=== PATIENT | male | born 1940 | race Caucasian/White ===

== ENCOUNTER 2018-03-23 14:40 | Inpatient (IN) | payer OTHER ==
--- NOTE | 2018-03-23 14:55 | PDOC ---
History of Present Illness - General History Source: Patient Exam Limitations: No Limitations - History of Present Illness Initial Comments: 03/23/18 16:06 The patient is a 77 year old male with a significant PMH of diabetes who presents to the emergency department via EMS with inability to ambulate. The patient reports that he was last ambulatory 2 days prior to today but, his knees gave out and he has been unable to ambulate since then. The patient reports that he has had about 4 prior knee injuries where he has fallen on his knees within the past 5 years. The patient reports that he has been told by prior physicians that he would need knee replacement surgery. The patient reports that he has not followed up with a physician regarding this matter. The patient denies the use of any waking assistance. He denies any chest pain or SOB. He denies any fever, chills, nausea, vomiting, or diarrhea. The patient denies any prior tetanus vaccines. It is noted that the patient has been non compliant with diabetes medication for 2 years. The patient denies any other complaints. <Reji Cornelius - Last Filed: 03/23/18 17:33> <Juana Donaldson - Last Filed: 03/23/18 18:01> - General Chief Complaint: Edema Stated Complaint: UNABLE TO AMBULATE DUE TO B/L KNEE PROBLEM Time Seen by Provider: 03/23/18 14:42 Past History <Reji Cornelius - Last Filed: 03/23/18 17:33> - Suicide/Smoking/Psychosocial Hx Smoking History: Never smoked Information on smoking cessation initiated: No Hx Alcohol Use: No Drug/Substance Use Hx: No <Juana Donaldson - Last Filed: 03/23/18 18:01> - Past Medical History Allergies/Adverse Reactions: Allergies Allergy/AdvReac Type Severity Reaction Status Date / Time No Known Allergies Allergy Verified 03/23/18 14:50 Home Medications: Ambulatory Orders NK [No Known Home Medication] 03/23/18 Review of Systems - Review of Systems Comments:: 03/23/18 16:06 GENERAL/CONSTITUTIONAL: No fever or chills. No weakness. HEAD, EYES, EARS, NOSE AND THROAT: No change in vision. No ear pain or discharge. No sore throat. CARDIOVASCULAR: No chest pain or shortness of breath. RESPIRATORY: No cough, wheezing, or hemoptysis. GASTROINTESTINAL: No nausea, vomiting, diarrhea or constipation. GENITOURINARY: No dysuria, frequency, or change in urination. MUSCULOSKELETAL: (+) right and left knee injury. No neck or back pain. SKIN: No rash NEUROLOGIC: No headache, vertigo, loss of consciousness, or change in strength/ sensation. ENDOCRINE: No increased thirst. No abnormal weight change. HEMATOLOGIC/LYMPHATIC: No anemia, easy bleeding, or history of blood clots. ALLERGIC/IMMUNOLOGIC: No hives or skin allergy. <Reji Cornelius - Last Filed: 03/23/18 17:33> *Physical Exam - Vital Signs Last Vital Signs Temp Pulse Resp BP Pulse Ox 98.1 F 90 18 146/69 96 03/23/18 14:42 03/23/18 14:42 03/23/18 14:42 03/23/18 14:42 03/23/18 14:42 - Physical Exam Comments: 03/23/18 16:06 GENERAL: Awake, alert, and fully oriented, in no acute distress HEAD: No signs of trauma EYES: PERRLA, EOMI, sclera anicteric, conjunctiva clear ENT: Auricles normal inspection, hearing grossly normal, nares patent, oropharynx clear without exudates. Moist mucosa NECK: Normal ROM, supple, no lymphadenopathy, JVD, or masses LUNGS: (+) diminished at the base. Breath sounds equal, No wheezes, and no crackles HEART: Regular rate and rhythm, normal S1 and S2, no murmurs, rubs or gallops ABDOMEN: Soft, nontender, normoactive bowel sounds. No guarding, no rebound. No masses EXTREMITIES: (+) plus 2 pitting edema and abrasions to both knees. Mild tenderness consistent with rug fung. . Normal range of motion, No clubbing or cyanosis. No cords, erythema. NEUROLOGICAL: (+) gait deferred. Cranial nerves II through XII grossly intact. Normal speech, SKIN: Warm, Dry, normal turgor, no rashes or lesions noted. <Reji Cornelius - Last Filed: 03/23/18 17:33> - Vital Signs Last Vital Signs Temp Pulse Resp BP Pulse Ox 98.1 F 90 18 146/69 96 03/23/18 14:42 03/23/18 14:42 03/23/18 14:42 03/23/18 14:42 03/23/18 14:42 <Juana Donaldson - Last Filed: 03/23/18 18:01> Heart Score/ECG Review - ECG Intrepretation Comment:: 03/23/18 17:48 sinus at 89, nl axis, nl interval, no acute st/t wave findings, t wave flattening in the inferior leads, q waves inferior that are age indeterminate 03/23/18 17:49 <Juana Donaldson - Last Filed: 03/23/18 18:01> ED Treatment Course - LABORATORY CBC & Chemistry Diagram: 03/23/18 14:00 03/23/18 15:35 - Medications Given in the ED: ED Medications Discontinued Medications Generic Name Dose Route Start Last Admin Trade Name Krystianq PRN Reason Stop Dose Admin Acetaminophen 1,000 mg 03/23/18 15:04 03/23/18 15:35 Tylenol - PO 03/23/18 15:05 1,000 mg ONCE ONE Administration <Reji Cornelius - Last Filed: 03/23/18 17:33> - LABORATORY CBC & Chemistry Diagram: 03/23/18 14:00 03/23/18 15:35 <Juana Donaldson - Last Filed: 03/23/18 18:01> Medical Decision Making - Medical Decision Making 03/23/18 17:[address] Morales at 5:05pm <Reji Cornelius - Last Filed: 03/23/18 17:33> - Medical Decision Making 03/23/18 15:01 a/p: 77yo male brought in with an ambulance from [facility] for eval of b/l knee pain -hx of falls x 5 over the last few years -told he needs knee replacements in the past -knees gave out 2 days ago and he hasn't been able to ambulate since -will update tetanus -LE 2+pitting edema -noncompliant diabetic -disheveled, obese, LE edema -will obtain labs, doppler, xrays, ekg -will attempt to ambulate tylenol for pain 03/23/18 17:09 mildly elevated trop at 0.[address] Christensen who will see the patient in consult tomorrow recommended trending trop asa monitor 03/23/18 17:46 case discussed with Sil from [facility] who accepts the patient to service. Will place a consult to cards, ortho, pt will admit to tele ivf for elevated ck - mild rhabdo 03/23/18 17:58 pt updated and willing to stay for further eval <Juana Donaldson - Last Filed: 03/23/18 18:01> *DC/Admit/Observation/Transfer - Attestations Scribe Attestion: 03/23/18 16:07 Documentation prepared by Reji Cornelius, acting as medical sociologist for Juana Donaldson MD <Reji Cornelius - Last Filed: 03/23/18 17:33> - Discharge Dispostion Admit: Yes - Attestations Physician Attestion: 03/23/18 17:10 I, Dr. Juana Donaldson, DO, attest that this document has been prepared under my direction and personally reviewed by me in its entirety. I further attest, that it accurately reflects all work, treatment, procedures and medical decision -making performed by me. <Juana Donaldson - Last Filed: 03/23/18 18:01> Diagnosis at time of Disposition: Inability to ambulate due to knee, Elevated troponin, Obesity, Noncompliance with medication regimen, Rhabdomyolysis - Discharge Dispostion Condition at time of disposition: Guarded
[2018-03-23] MEDS ORDERED: ACETAMINOPHEN 500 MG TABLET (FP) PO ONE (15:04)
[2018-03-23] MEDS ORDERED: DIPHTH,PERTUSS(ACELL),TET 0.5 ML DISP.SYRIN IM ONE (15:04)
[2018-03-23] MEDS ORDERED: ACETAMINOPHEN 500 MG TABLET (FP) ONE (15:34)
[2018-03-23 16:23] LABS: ALBUMIN 3.5 g/dl (3.5-5.0); ALK PHOS 66 U/L (32-92); ANION GAP 11 (8-16); BILIRUBIN,TOTAL 1.3 mg/dl (0.2-1.0); BLOOD UREA NITROGEN 16 mg/dl (7-18); CALCIUM 8.6 mg/dl (8.4-10.2); CHLORIDE 98 mmol/L (98-107); CO2 25 mmol/L (22-28); CREATININE 0.9 mg/dl (0.6-1.3); GLUCOSE,RANDOM 129 mg/dl (74-106); MAGNESIUM 1.8 mg/dL (1.8-2.4); POTASSIUM 4.3 mmol/L (3.5-5.1); SGPT/ALT 153 U/L (10-40); SODIUM 134 mmol/L (136-145); TOT PROT 6.5 g/dl (6.4-8.3)
[2018-03-23 16:39] LABS: BASO % 0.2 % (0-2.0); HEMATOCRIT 43.1 % (35.4-49); HEMOGLOBIN 14.5 GM/dl (11.7-16.9); LYMPH % 10.1 % (8-40); MCH 28.2 pg (25.7-33.7); MCHC 33.6 g/dl (32.0-35.9); MEAN PLT VOLUME 7.8 fl (7.5-11.1); MONO % 9.1 % (3.8-10.2); NEUT % 80.6 % (42.8-82.8); PLATELET COUNT 209 K/MM3 (134-434); RBC 5.14 M/mm3 (4.00-5.60); WHITE BLOOD COUNT 9.9 K/mm3 (4.0-10.8)
[2018-03-23] MEDS ORDERED: ASPIRIN 81 MG CHEWABLE TABLETS PO ONE (16:58)
[2018-03-23 17:07] LABS: SGOT/AST 570 U/L (10-42)
[2018-03-23] MEDS ORDERED: ASPIRIN 81 MG CHEWABLE TABLETS ONE (17:08)
[2018-03-23] MEDS ORDERED: SODIUM CHLORIDE 0.9% 1000 ML INFUS.BAG IV ONE (17:45)
[2018-03-23 19:13] LABS: URINE APPEARANCE Clear; URINE BILIRUBIN 1+ (NEGATIVE); URINE GLUCOSE (UA) Negative (NEGATIVE); URINE KETONE 2+ (NEGATIVE); URINE LEUK ESTERASE Negative (NEGATIVE); URINE NITRITE Negative (NEGATIVE); URINE UROBILINOGEN 0.2 (0.2-1.0)
[2018-03-23 19:14] LABS: URINE BLOOD 3+ (NEGATIVE); URINE COLOR YELLOW; URINE PROTEIN 2+ (NEGATIVE)
--- NOTE | 2018-03-23 20:11 | HP ---
CHIEF COMPLAINT: Unable to ambulate, B/L Knee Pain PCP: HISTORY OF PRESENT ILLNESS: 77 y/o man PMH of DM. Who presents to the ED via ambulance from home with B/L knee pain, unable to ambulate. Patient reports his knees gave out on him 2 days ago. Patient reports increased LE edema, SOB increased when ambulating. Patient reports not taking his DM meds. patient reports an increase in weight secondary to poor eating habits. Patient denies fever, chills, cough, CP, palpitations, AP , N/V/D, constipation, dysuria. ER course was notable for: (1) [place] [address], CKMB 69.3, Trop < 0.11 (2) Glucose 209 (3) Recent Travel: None PAST MEDICAL HISTORY: see HPI PAST SURGICAL HISTORY: Social History: Smoking: Never Alcohol: None Drugs: None Lives alone Family History: non-contributory Allergies No Known Allergies Allergy (Verified 03/23/18 14:50) HOME MEDICATIONS: Home Medications Medication Instructions Recorded NK [No Known Home Medication] 03/23/18 REVIEW OF SYSTEMS CONSTITUTIONAL: Absent: fever, chills, diaphoresis, generalized weakness, malaise, loss of appetite, weight change HEENT: Absent: rhinorrhea, nasal congestion, throat pain, throat swelling, difficulty swallowing, mouth swelling, ear pain, eye pain, visual changes CARDIOVASCULAR: peripheral edema Absent: chest pain, syncope, palpitations, irregular heart rate, lightheadedness RESPIRATORY: shortness of breath Absent: cough, dyspnea with exertion, orthopnea, wheezing, stridor, hemoptysis GASTROINTESTINAL: Absent: abdominal pain, abdominal distension, nausea, vomiting, diarrhea, constipation, melena, hematochezia GENITOURINARY: Absent: dysuria, frequency, urgency, hesitancy, hematuria, flank pain, genital pain MUSCULOSKELETAL: arthralgia, joint swelling Absent: myalgia, back pain, neck pain SKIN: Absent: rash, itching, pallor HEMATOLOGIC/IMMUNOLOGIC: Absent: easy bleeding, easy bruising, lymphadenopathy, frequent infections ENDOCRINE: Absent: unexplained weight gain, unexplained weight loss, heat intolerance, cold intolerance NEUROLOGIC: unsteady gait Absent: headache, focal weakness or paresthesias, dizziness, seizure, mental status changes, bladder or bowel incontinence PSYCHIATRIC: Absent: anxiety, depression, suicidal or homicidal ideation, hallucinations. PHYSICAL EXAMINATION Vital Signs - 24 hr 03/23/18 03/23/18 14:42 18:30 Temperature 98.1 F Pulse Rate 90 Pulse Rate [ 86 Apical] Respiratory 18 20 Rate Blood Pressure 146/69 Blood Pressure 142/72 [Arm] O2 Sat by Pulse 96 95 Oximetry (%) GENERAL: Severe Obesity, Awake, alert, and fully oriented, in no acute distress. HEAD: Normal with no signs of trauma. EYES: Pupils equal, round and reactive to light, extraocular movements intact, sclera anicteric, conjunctiva clear. No lid lag. EARS, NOSE, THROAT: Ears normal, nares patent, oropharynx clear without exudates. Dry mucous membranes. NECK: Normal range of motion, supple without lymphadenopathy, JVD, or masses. LUNGS: Breath sounds diminished bilaterally. No wheezes, and no crackles. No accessory muscle use. HEART: Regular rate and rhythm, normal S1 and S2 without murmur, rub or gallop. ABDOMEN: +erythema, non-raised excoriation, malodorous, under left pannis, Obese Soft, nontender, not distended, normoactive bowel sounds, no guarding, no rebound, no masses. No hepatomegaly or splenomegaly. MUSCULOSKELETAL: Normal range of motion at all joints. No bony deformities or tenderness. No CVA tenderness. UPPER EXTREMITIES: 2+ pulses, warm, well-perfused. No cyanosis. No clubbing. No peripheral edema. LOWER EXTREMITIES: 2+ pulses, warm, well-perfused. No calf tenderness. +3 B/L pitting peripheral edema. NEUROLOGICAL: Cranial nerves II-XII intact. Normal speech. Gait not observed. PSYCHIATRIC: Cooperative. Good eye contact. Appropriate mood and affect. SKIN: Warm, dry, normal turgor, no rashes. rerythema, non-raised excoriation lesions left fold abdomen noted, normal capillary refill. Laboratory Results - last 24 hr 03/23/18 03/23/18 03/23/18 14:00 15:35 15:37 WBC 9.9 RBC 5.14 Hgb 14.5 Hct 43.1 MCV 84.0 MCH 28.2 MCHC 33.6 RDW 14.0 Plt Count 209 MPV 7.8 Neutrophils % 80.6 Lymphocytes % 10.1 Monocytes % 9.1 Eosinophils % 0.0 Basophils % 0.2 Sodium 134 L Potassium 4.3 Chloride 98 Carbon Dioxide 25 Anion Gap 11 BUN 16 Creatinine 0.9 Creat Clearance w eGFR > 60 Random Glucose 129 H Calcium 8.6 Magnesium 1.8 Total Bilirubin 1.3 H AST 570 H ALT 153 H Alkaline Phosphatase 66 Creatine Kinase 66854 H Creatine Kinase Index 0.3 CK-MB (CK-2) 69.3 H Troponin I B-Natriuretic Peptide Total Protein 6.5 Albumin 3.5 Urine Color Urine Appearance Urine pH Ur Specific Lebeau Urine Protein Urine Glucose (UA) Urine Ketones Urine Blood Urine Nitrite Urine Bilirubin Urine Urobilinogen Ur Leukocyte Esterase 03/23/18 03/23/18 03/23/18 16:00 16:00 19:00 WBC RBC Hgb Hct MCV MCH MCHC RDW Plt Count MPV Neutrophils % Lymphocytes % Monocytes % Eosinophils % Basophils % Sodium Potassium Chloride Carbon Dioxide Anion Gap BUN Creatinine Creat Clearance w eGFR Random Glucose Calcium Magnesium Total Bilirubin AST ALT Alkaline Phosphatase Creatine Kinase Creatine Kinase Index CK-MB (CK-2) Troponin I 0.11 H B-Natriuretic Peptide 907.39 H Total Protein Albumin Urine Color Yellow Urine Appearance Clear Urine pH 5.0 Ur Specific Lebeau >= 1.030 H Urine Protein 2+ H Urine Glucose (UA) Negative Urine Ketones 2+ H Urine Blood 3+ H Urine Nitrite Negative Urine Bilirubin 1+ H Urine Urobilinogen 0.2 Ur Leukocyte Esterase Negative ASSESSMENT/PLAN: 77 y/o man with PMH DM. Placed in Tele Observation Rhabdomyolosis, Uncontrolled DM, Unable to ambulate Problems 1. Rhabdomyolysis 2. Unble to ambulate 3. Uncontrolled DM 4. Fungal Infection- Abdomen Plan FEN - NS@42ml/hr - replete lytes prn - NPO Code Status: Full Code Dispo: Requires Observation Problem List - Problem (1) Rhabdomyolysis Assessment/Plan: - Likely secondary to inability to ambulate, frequent falls - continue cardiac monitoring - Fluid bolus given in ED - Continue gentle IVF - Serial cardiac enzymes - Appreciate cardiology consult - EKG reviewed - repeat EKG in am Code(s): M62.82 - RHABDOMYOLYSIS (2) Elevated troponin Assessment/Plan: - see above Code(s): R74.8 - ABNORMAL LEVELS OF OTHER SERUM ENZYMES (3) Inability to ambulate due to knee Assessment/Plan: - Likely secondary to severe OA - PT - Consider Ortho consult - Pain Mgmt Code(s): R26.2 - DIFFICULTY IN WALKING, NOT ELSEWHERE CLASSIFIED (4) Fungal infection of skin of abdomen Assessment/Plan: - Likely secondary to poor hygiene - Nystatin daily Code(s): B36.9 - SUPERFICIAL MYCOSIS, UNSPECIFIED (5) Severe obesity (BMI >= 40) Assessment/Plan: - Carb Control Diet Code(s): E66.01 - MORBID (SEVERE) OBESITY DUE TO EXCESS CALORIES (6) DVT prophylaxis Assessment/Plan: - OOB - SCDs - Consider AC if LOS> 48 hrs Code(s): [id number] - Visit type - Emergency Visit Emergency Visit: Yes ED Registration Date: 03/23/18 Care time: The patient presented to the Emergency Department on the above date and was hospitalized for further evaluation of their emergent condition. - New Patient This patient is new to me today: Yes Date on this admission: 03/23/18 - Critical Care Critical Care patient: No Hospitalist Screening - Colonoscopy Questionnaire Colonoscopy Questionnaire: Colonoscopy Questionnaire - Patient: 50 - 75 years old and never had a screening colonoscopy: No History of colon or rectal polyps, or CA: No History of IBD, Crohn's disease or UC: No History of abdominal radiation therapy as a child: No - Relative: 1 with colon or rectal CA, or polyps at age 60 or younger: No Colon or rectal CA diagnosed at age 45 or younger: No Multiple relatives with colon or rectal CA: No - Outcome: Screening Result: Negative Screen
[2018-03-23 20:45] LABS: URINE BACTERIA FEW /hpf (NEGATIVE)
[2018-03-23] MEDS: ACETAMINOPHEN 325 MG TABLET (FP) PO SCH (21:22)
[2018-03-23] MEDS: HEPARIN NA (PORCINE) 5,000 UNITS/ML 1ML VIAL SQ SCH (21:42)
[2018-03-23] MEDS: INSULIN SLIDING SCALE (NOVOLOG) 1 VIAL SQ SCH (21:42)
[2018-03-24] MEDS ORDERED: SODIUM CHLORIDE 500 ML IV STA (00:14)
[2018-03-24] MEDS ORDERED: SODIUM CHLORIDE 1,000 ML IV SCH ×2 (00:15→11:20)
[2018-03-24] MEDS: ACETAMINOPHEN 325 MG TABLET (FP) PO SCH ×4 (00:40→17:58)
[2018-03-24] MEDS: NYSTATIN POWDER 100,000 UNITS/GM - 15 GM TOPICAL POWDER TP SCH ×2 (01:25→10:12)
[2018-03-24] MEDS: HEPARIN NA (PORCINE) 5,000 UNITS/ML 1ML VIAL SQ SCH (06:10)
[2018-03-24] MEDS: INSULIN SLIDING SCALE (NOVOLOG) 1 VIAL SQ SCH ×4 (06:54→21:13)
[2018-03-24 08:30] LABS: BASO % 0.1 % (0-2.0); EOS % 0.2 % (0-4.5); HEMATOCRIT 38.4 % (35.4-49); HEMOGLOBIN 12.9 GM/dl (11.7-16.9); LYMPH % 11.9 % (8-40); MCH 28.6 pg (25.7-33.7); MCHC 33.5 g/dl (32.0-35.9); MEAN CELL VOLUME 85.2 fl (80-96); MEAN PLT VOLUME 7.5 fl (7.5-11.1); MONO % 10.4 % (3.8-10.2); NEUT % 77.4 % (42.8-82.8); PLATELET COUNT 188 K/MM3 (134-434); RBC 4.51 M/mm3 (4.00-5.60); WHITE BLOOD COUNT 7.9 K/mm3 (4.0-10.8)
[2018-03-24] MEDS ORDERED: PT OWN MED DRAWER 7, Y5N ONE (09:09)
[2018-03-24 09:25] LABS: CHLORIDE 104 mmol/L (98-107); POTASSIUM 3.5 mmol/L (3.5-5.1); SODIUM 140 mmol/L (136-145)
--- NOTE | 2018-03-24 10:22 | EKG ---
Test Reason : Blood Pressure : / mmHG Vent. Rate : 089 BPM Atrial Rate : 089 BPM P-R Int : 172 ms QRS Dur : 092 ms QT Int : 388 ms P-R-T Axes : 056 005 048 degrees QTc Int : 472 ms NORMAL SINUS RHYTHM CANNOT RULE OUT INFERIOR INFARCT , AGE UNDETERMINED ABNORMAL ECG NO PREVIOUS ECGS AVAILABLE Confirmed by MD GLORY, JILLIAN ([id number]) on 03/24/2018 10:22:05 AM Referred By: ALEKSANDAR Confirmed By:JILLIAN HOLDER MD
[2018-03-24 10:56] LABS: ANION GAP 8 (8-16); BLOOD UREA NITROGEN 13 mg/dL (7-18); CALCIUM 7.8 mg/dL (8.5-10.1); CO2 28 mmol/L (21-32); CREATININE 0.7 mg/dL (0.7-1.3); GLUCOSE,RANDOM 112 mg/dL (74-106); TOT PROT 5.9 g/dl (6.4-8.2)
[2018-03-24 10:57] LABS: ALK PHOS 69 U/L (45-117); BILIRUBIN,TOTAL 0.5 mg/dL (0.2-1.0); SGOT/AST 595 U/L (15-37); SGPT/ALT 181 U/L (12-78)
--- NOTE | 2018-03-24 11:00 | CON.CARD ---
Cardiology Consult (text) - Consultation Consultation Note: cc: elevated trop 77 yo with PMH of diabetes (per report) non compliant with diabetes medication for 2 years p/w LE edema/weakness/fall and found to have rhabdo. Hospital course complicated by new diagnosis of htn, paroxysmal afib and elevated troponin. S/p fall a few days ago, has been having difficulty ambulating since then. Had a recurrent fall where he was unable to get up for prolonged period. The patient reports that he has had about 4 prior knee injuries where he has fallen on his knees within the past 5 years. Denies the use of any walking assistance. ER course notable for elevated CK/rhabdo --> IVF. And elevated troponin --> ASA. also noted to be htn, has not yet received anti-htn. + sob, le edema chronic. + joint pain, unstable gait . + diarrhea today. He denies any chest pain, orthopnea, palps, dizziness, bleeding, transient neurologic symptoms. He denies any fever, chills, sweats, nausea, vomiting, cough, congestion, h/a. pmhx/pshx: per hpi social hx: Never smoked family hx: no cardiac disease ros: per hpi Ambulatory Orders NK [No Known Home Medication] 03/23/18 Current Medications Acetaminophen (Tylenol -) 650 mg PO Q6HPO [facility] Last Admin: 03/24/18 06:10 Dose: 650 mg Heparin Sodium (Porcine) (Heparin -) 5,000 unit SQ TID [facility] Last Admin: 03/24/18 06:10 Dose: 5,000 unit Sodium Chloride (Normal Saline -) 1,000 mls @ 42 mls/hr IV ASDIR [facility] Last Admin: 03/24/18 01:05 Dose: 42 mls/hr Insulin Aspart (Novolog Vial Sliding Scale -) 1 vial SQ ACHS [facility] PRN Reason: Protocol Last Admin: 03/24/18 06:54 Dose: Not Given Nystatin (Nystop Powder -) 1 applic TP DAILY [facility] Last Admin: 03/24/18 10:12 Dose: 1 applic Vital Signs - 24 hr 03/23/18 03/23/18 03/23/18 14:42 18:30 19:57 Temperature 98.1 F 98.0 F Pulse Rate 90 82 Pulse Rate [ 86 Apical] Respiratory 18 20 20 Rate Blood Pressure 146/69 144/68 Blood Pressure 142/72 [Arm] O2 Sat by Pulse 96 95 96 Oximetry (%) 03/23/18 03/23/18 03/24/18 21:00 21:59 01:21 Temperature 97.4 F L Pulse Rate 75 Pulse Rate [ Apical] Respiratory 20 18 18 Rate Blood Pressure 131/57 Blood Pressure [Arm] O2 Sat by Pulse 96 95 95 Oximetry (%) 03/24/18 03/24/18 03/24/18 01:45 06:00 06:08 Temperature 98.4 F 98.4 F 98.4 F Pulse Rate 86 89 89 Pulse Rate [ Apical] Respiratory 18 20 20 Rate Blood Pressure 158/72 181/80 181/80 Blood Pressure [Arm] O2 Sat by Pulse 95 95 Oximetry (%) 03/24/18 03/24/18 06:09 09:00 Temperature Pulse Rate Pulse Rate [ Apical] Respiratory 20 Rate Blood Pressure Blood Pressure [Arm] O2 Sat by Pulse 95 95 Oximetry (%) Intake & Output 03/22/18 03/23/18 03/24/18 03/25/18 07:59 07:59 07:59 07:59 Intake Total 2145 450 Output Total 1050 Balance 1095 450 Weight 297 lb nad, calm jvd tds, neck supple bibasilar rales, nl effort rrr nl s1, s2. no mrg. pmi nd ext with trace edema. no c/c + bs soft nt nd. +dp/pt aaox3 no jaundice, diaphoresis. CBC, BMP 03/24/18 07:25 03/24/18 07:25 Laboratory Tests 03/23/18 03/23/18 03/23/18 15:35 15:37 16:00 Sodium 134 L Hemoglobin A1c % Total Bilirubin 1.3 H AST 570 H ALT 153 H Alkaline Phosphatase 66 Creatine Kinase 26234 H Creatine Kinase Index 0.3 CK-MB (CK-2) 69.3 H Troponin I 0.11 H B-Natriuretic Peptide Albumin 03/23/18 03/23/18 03/23/18 16:00 21:41 22:00 Sodium Hemoglobin A1c % 7.5 H Total Bilirubin AST ALT Alkaline Phosphatase Creatine Kinase Creatine Kinase Index CK-MB (CK-2) Troponin I 0.10 H B-Natriuretic Peptide 907.39 H Albumin 03/23/18 03/24/18 03/24/18 22:00 03:15 07:25 Sodium Hemoglobin A1c % Total Bilirubin 0.5 AST 595 H ALT 181 H Alkaline Phosphatase 69 Creatine Kinase 85429 H 55273 H Creatine Kinase Index 0.2 0.1 CK-MB (CK-2) 58.8 H 36.239 H Troponin I 0.18 H B-Natriuretic Peptide Albumin 3.0 L ekg: nsr, early r wave progression. no acute ischemic changes. tele: sr with recurrent episodes of aflutter fib 5-10 min at a time. 77 yo with PMH of diabetes (per report) non compliant with diabetes medication for 2 years p/w LE edema/weakness/fall and found to have rhabdo. Hospital course complicated by new diagnosis of htn, paroxysmal afib and abnormal troponin. abnormal troponin - Intermediate troponin elevation (up to 0.18 in the setting of CK > 20,000, overall flat trend (still trending up in setting of ongoing uptrend in ck to 29, 000). Likely troponin leak 2/2 rhabdo (+/- demand from psvt). ekg without ischemic changes. No concern for ACS at the time. - can consider need for outpatient ischemic evaluation once acute issues resolve. - echo pending. sob - per pmd, concern for sob on IVF. Will get pa/lat cxr to assess for worsened pulm edema. If no worsened pulm edema, ok to con't IVF with renal guidance and close monitoring of volume status. daily weights, I/O's, bmp. - echo pending. new diagnosis of paroxysmal aflutter/fib - 5-10 min stretches of aflutter/fib. - new diagnosis, will initiate rate control with coreg as mentione below. Intiate AC with myranda. - echo pending. - consider petra eval as outpatient. htn - not previously on anti-htn regimen. initiating coreg (also for rate control) . uptitrate as needed. s/p mechanical fall/LE weakness/rhabdo - ongoing mgm't per pmd, renal.
[2018-03-24] MEDS ORDERED: POTASSIUM CHLORIDE TABS 10 MEQ TABLET.ER (FP) PO ONE (11:20)
[2018-03-24] MEDS ORDERED: SODIUM CHLORIDE 0.45% 1,000 ML IV SCH (11:30)
--- NOTE | 2018-03-24 11:33 | PN ---
Physical Exam: SUBJECTIVE: Patient seen and examined, sitting in bedside chair, reports feeling short of breath upon ambulating, run of aflutter noted on cardiac telemetry OBJECTIVE: Patient is 77 y/o male with a past medical history of hypertension and bph, patient self discontinued his mediations 2 years ago. patient was admitted from the emergency department for emergent condition. Vital Signs Period Temp Pulse Resp BP Sys/[place] Pulse Ox Last 24 Hr 97.4 F-98.4 F 75-90 18-20 131-181/57-80 95-96 GENERAL: obese, awake, alert, and fully oriented, in no acute distress. HEAD: Normal with no signs of trauma. EYES: PERRL, extraocular movements intact, sclera anicteric, conjunctiva clear. No ptosis. ENT: Ears normal, nares patent, oropharynx clear without exudates, moist mucous membranes. NECK: Trachea midline, full range of motion, supple. LUNGS: Breath sounds equal, clear to auscultation bilaterally, diminished to bases no wheezes, no crackles, no accessory muscle use. HEART: Regular rate and rhythm, S1, S2, 2/6 systolic murmur, rub or gallop. ABDOMEN: Soft, nontender, nondistended, normoactive bowel sounds, no guarding, no rebound, no hepatosplenomegaly, no masses. EXTREMITIES: 2+ pulses, warm, well-perfused, +2 LE edema. NEUROLOGICAL: Cranial nerves II through XII grossly intact. Normal speech, gait not observed. PSYCH: Normal mood, normal affect. SKIN: tinea noted to groin, Warm, dry, normal turgor, no rashes or lesions noted Laboratory Results - last 24 hr 03/23/18 03/23/18 03/23/18 14:00 15:35 15:37 WBC 9.9 RBC 5.14 Hgb 14.5 Hct 43.1 MCV 84.0 MCH 28.2 MCHC 33.6 RDW 14.0 Plt Count 209 MPV 7.8 Neutrophils % 80.6 Lymphocytes % 10.1 Monocytes % 9.1 Eosinophils % 0.0 Basophils % 0.2 Sodium 134 L Potassium 4.3 Chloride 98 Carbon Dioxide 25 Anion Gap 11 BUN 16 Creatinine 0.9 Creat Clearance w eGFR > 60 POC Glucometer Random Glucose 129 H Hemoglobin A1c % Calcium 8.6 Phosphorus Magnesium 1.8 Total Bilirubin 1.3 H AST 570 H ALT 153 H Alkaline Phosphatase 66 Creatine Kinase 96898 H Creatine Kinase Index 0.3 CK-MB (CK-2) 69.3 H Troponin I B-Natriuretic Peptide Total Protein 6.5 Albumin 3.5 Urine Color Urine Appearance Urine pH Ur Specific Quinter Urine Protein Urine Glucose (UA) Urine Ketones Urine Blood Urine Nitrite Urine Bilirubin Urine Urobilinogen Ur Leukocyte Esterase Urine RBC Urine WBC Urine Bacteria 03/23/18 03/23/18 03/23/18 16:00 16:00 19:00 WBC RBC Hgb Hct MCV MCH MCHC RDW Plt Count MPV Neutrophils % Lymphocytes % Monocytes % Eosinophils % Basophils % Sodium Potassium Chloride Carbon Dioxide Anion Gap BUN Creatinine Creat Clearance w eGFR POC Glucometer Random Glucose Hemoglobin A1c % Calcium Phosphorus Magnesium Total Bilirubin AST ALT Alkaline Phosphatase Creatine Kinase Creatine Kinase Index CK-MB (CK-2) Troponin I 0.11 H B-Natriuretic Peptide 907.39 H Total Protein Albumin Urine Color Yellow Urine Appearance Clear Urine pH 5.0 Ur Specific [place] >= 1.030 H Urine Protein 2+ H Urine Glucose (UA) Negative Urine Ketones 2+ H Urine Blood 3+ H Urine Nitrite Negative Urine Bilirubin 1+ H Urine Urobilinogen 0.2 Ur Leukocyte Esterase Negative Urine RBC 2-5 Urine WBC 10-20 Urine Bacteria Few 03/23/18 03/23/18 03/23/18 21:33 21:41 22:00 WBC RBC Hgb Hct MCV MCH MCHC RDW Plt Count MPV Neutrophils % Lymphocytes % Monocytes % Eosinophils % Basophils % Sodium Potassium Chloride Carbon Dioxide Anion Gap BUN Creatinine Creat Clearance w eGFR POC Glucometer 123 Random Glucose Hemoglobin A1c % 7.5 H Calcium Phosphorus Magnesium Total Bilirubin AST ALT Alkaline Phosphatase Creatine Kinase Creatine Kinase Index CK-MB (CK-2) Troponin I 0.10 H B-Natriuretic Peptide Total Protein Albumin Urine Color Urine Appearance Urine pH Ur Specific Quinter Urine Protein Urine Glucose (UA) Urine Ketones Urine Blood Urine Nitrite Urine Bilirubin Urine Urobilinogen Ur Leukocyte Esterase Urine RBC Urine WBC Urine Bacteria 03/23/18 03/24/18 03/24/18 22:00 03:15 06:40 WBC RBC Hgb Hct MCV MCH MCHC RDW Plt Count MPV Neutrophils % Lymphocytes % Monocytes % Eosinophils % Basophils % Sodium Potassium Chloride Carbon Dioxide Anion Gap BUN Creatinine Creat Clearance w eGFR POC Glucometer 128 Random Glucose Hemoglobin A1c % Calcium Phosphorus Magnesium Total Bilirubin AST ALT Alkaline Phosphatase Creatine Kinase 71906 H 40089 H Creatine Kinase Index 0.2 0.1 CK-MB (CK-2) 58.8 H 36.239 H Troponin I 0.18 H B-Natriuretic Peptide Total Protein Albumin Urine Color Urine Appearance Urine pH Ur Specific [place]inter Urine Protein Urine Glucose (UA) Urine Ketones Urine Blood Urine Nitrite Urine Bilirubin Urine Urobilinogen Ur Leukocyte Esterase Urine RBC Urine WBC Urine Bacteria 03/24/18 03/24/18 07:25 07:25 WBC 7.9 RBC 4.51 Hgb 12.9 D Hct 38.4 MCV 85.2 MCH 28.6 MCHC 33.5 RDW 14.0 Plt Count 188 MPV 7.5 Neutrophils % 77.4 Lymphocytes % 11.9 Monocytes % 10.4 H Eosinophils % 0.2 D Basophils % 0.1 Sodium 140 Potassium 3.5 Chloride 104 Carbon Dioxide 28 Anion Gap 8 BUN 13 Creatinine 0.7 Creat Clearance w eGFR > 60 POC Glucometer Random Glucose 112 H Hemoglobin A1c % Calcium 7.8 L Phosphorus 3.0 Magnesium 2.0 Total Bilirubin 0.5 AST 595 H ALT 181 H Alkaline Phosphatase 69 Creatine Kinase Creatine Kinase Index CK-MB (CK-2) Troponin I B-Natriuretic Peptide Total Protein 5.9 L Albumin 3.0 L Urine Color Urine Appearance Urine pH Ur Specific Quinter Urine Protein Urine Glucose (UA) Urine Ketones Urine Blood Urine Nitrite Urine Bilirubin Urine Urobilinogen Ur Leukocyte Esterase Urine RBC Urine WBC Urine Bacteria Active Medications Generic Name Dose Route Start Last Admin Trade Name Freq PRN Reason Stop Dose Admin Acetaminophen 650 mg 03/23/18 18:00 03/24/18 06:10 Tylenol - PO 650 mg Q6HPO [facility] Administration Heparin Sodium (Porcine) 5,000 unit 03/23/18 22:00 03/24/18 06:10 Heparin - SQ 5,000 unit TID [facility] Administration Sodium Chloride 1,000 mls @ 75 mls/hr 03/24/18 11:30 1/2 Normal Saline IV ASDIR DANIEL Insulin Aspart 1 vial 03/23/18 22:00 03/24/18 06:54 Novolog Vial Sliding Scale - SQ Not Given ACHS [facility] Protocol Meclizine HCl 25 mg 03/24/18 11:31 Antivert - PO Q6H PRN VERTIGO Nystatin 1 applic 03/23/18 22:29 03/24/18 10:12 Nystop Powder - TP 1 applic DAILY DANIEL Administration IMAGING chest xray: cardiomegly no infillirates xray of bilateral knees: no acute fracture no dislocation, moderate degenerative changes bilateral lower extremity doppler: no evidence of dvt ASSESSMENT/PLAN: 1) cardiology new onset afib - rate controlled, start coreg, echo, continous cardiac monitoring - case discussed with Dr Jarrett, cardiology,recommend starting eliquis hypertension - coreg, strict b/p monitoring q4h hyperlipidemia - pending lipid profile 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 - New Patient This patient is new to me today: Yes Date on this admission: 03/24/18 - Critical Care Critical Care patient: No - Discharge Referral Referred to [facility] Med P.C.: No
[2018-03-24] MEDS ORDERED: CARVEDILOL 3.125 MG TABLET (FP) PO SCH (12:30)
[2018-03-24] MEDS ORDERED: CARVEDILOL 6.25 MG TABLET (FP) PO SCH (12:31)
[2018-03-24] MEDS: APIXABAN 5 MG TABLET PO SCH ×2 (12:42→21:13)
[2018-03-24] MEDS: MUPIROCIN 2% TOPICAL OINTMENT 22 GM TUBE TP SCH ×2 (12:43→22:25)
--- NOTE | 2018-03-24 14:46 | CONSULT ---
Consult Consult Specialty:: Nephrology Reason for Consultation:: Rhabdo - History of Present Illness Chief Complaint: presented s/p fall History of Present Illness: Pt is a 77 year old male with pmhx of DM and obesity who presents to the ER after having two falls. He says that he fell down and was on the ground for about 10 hours. He was able to get help and get into a bed. He fell down again the second day and was on the ground for another ten hours. He came to the ER and was found to be in rhabdo with a CK that has been rising. I was called to evaluate him. He denies shortness of breath. He denies dysuria or hematuria. He complains of knee pain. He denies nsaid use. - History Source History Provided By: Patient, Medical Record - Past Medical History Endocrine: Yes: Diabetes Mellitus Additional Medical History: obesity - Alcohol/Substance Use Hx Alcohol Use: No - Smoking History Smoking history: Never smoked Home Medications - Allergies Allergies/Adverse Reactions: Allergies Allergy/AdvReac Type Severity Reaction Status Date / Time No Known Allergies Allergy Verified 03/23/18 14:50 - Home Medications Home Medications: Ambulatory Orders NK [No Known Home Medication] 03/23/18 Family Disease History - Family Disease History Family History: Denies Review of Systems - Review of Systems Constitutional: reports: Malaise Eyes: reports: No Symptoms HENT: reports: No Symptoms Neck: reports: No Symptoms Cardiovascular: reports: No Symptoms Respiratory: reports: No Symptoms Gastrointestinal: reports: No Symptoms Genitourinary: reports: No Symptoms Musculoskeletal: reports: Back Pain, Joint Pain Neurological: reports: No Symptoms Endocrine: reports: No Symptoms Hematology/Lymphatic: reports: No Symptoms Psychiatric: reports: No Symptoms Physical Exam Vital Signs: Vital Signs Temperature 98.5 F 03/24/18 14:03 Pulse Rate 76 03/24/18 14:03 Respiratory Rate 18 03/24/18 14:03 Blood Pressure 162/83 03/24/18 14:03 O2 Sat by Pulse Oximetry (%) 95 03/24/18 14:03 Constitutional: Yes: Calm Eyes: Yes: Conjunctiva Clear HENT: Yes: Atraumatic Cardiovascular: Yes: S1, S2 Gastrointestinal: Yes: Normal Bowel Sounds, Soft, Abdomen, Obese Renal/: Yes: WNL Musculoskeletal: Yes: WNL Edema: Yes Edema: LLE: Trace, RLE: Trace Neurological: Yes: Oriented Psychiatric: Yes: Oriented Labs: CBC, BMP 03/24/18 07:25 03/24/18 07:25 Laboratory Tests 03/23/18 03/23/18 03/23/18 15:35 15:37 22:00 Sodium Potassium Creatinine 0.9 Creatine Kinase 14139 H 22782 H 03/24/18 03/24/18 03/24/18 03:15 07:25 07:40 Sodium 140 Potassium 3.5 Creatinine 0.7 Creatine Kinase 85325 H 82614 H 03/24/18 14:10 Sodium Potassium Creatinine Creatine Kinase Pending Imaging - Results Chest X-ray: Report Reviewed Problem List - Problems (1) Obesity Code(s): E66.9 - OBESITY, UNSPECIFIED (2) Rhabdomyolysis Code(s): M62.82 - RHABDOMYOLYSIS (3) Severe obesity (BMI >= 40) Code(s): E66.01 - MORBID (SEVERE) OBESITY DUE TO EXCESS CALORIES Assessment/Plan Current Medications Generic Name Dose Route Start Last Admin Trade Name Xuan PRN Reason Stop Dose Admin Acetaminophen 650 mg 03/23/18 18:00 03/24/18 12:42 Tylenol - PO 650 mg Q6HPO DANIEL Administration Apixaban 5 mg 03/24/18 12:30 03/24/18 12:42 Eliquis - PO 5 mg BID DANIEL Administration Carvedilol 6.25 mg 03/24/18 12:31 Coreg - PO BID DANIEL Sodium Chloride 1,000 mls @ 75 mls/hr 03/24/18 11:30 03/24/18 12:42 1/2 Normal Saline IV 75 mls/hr ASDIR DANIEL Administration Insulin Aspart 1 vial 03/23/18 22:00 03/24/18 13:28 Novolog Vial Sliding Scale - SQ 2 unit ACHS DANIEL Administration Protocol Meclizine HCl 25 mg 03/24/18 11:31 Antivert - PO Q6H PRN VERTIGO Mupirocin 1 applic 03/24/18 12:30 03/24/18 12:43 Bactroban 2% Ointment - TP 1 applic BID DANIEL Administration Nystatin 1 applic 03/23/18 22:29 03/24/18 10:12 Nystop Powder - TP 1 applic DAILY DANIEL Administration Impression 1. Rhabdo 2. transaminitis 3. obesity 4. DM 5. vertigo 6. knee pain 7. back pain 8. s/p fall x 2 Plan - it appears pt does have renal involvement as his UA is abnormal - will cont with fluids and add bicarb, will cont fluids - if he developed any signs of failure can give a dose of lasix - cpk is starting to improve - will give an oral dose of potassium - check mag level - can keep pn 1/2 ns but will add an amp of bicarb - check echo - so failure on cxr - cardio input appreciated - rhabdo likely caused from falling and being on the floor for an extended period of time (about 20 hours collectively per pt) Dr Brower
[2018-03-24] MEDS: MECLIZINE HCL 25 MG TABLET (FP) PO PRN (14:58)
--- NOTE | 2018-03-24 15:43 | CONSULT ---
Consult - text type - Consultation Consultation Note: FULL CONSULT DICTATED IMP: CONTUSION AND DJD B KNEES PLAN: R.I.C.E, PT - WBAT, DC TO HOME AND F/U OUTPATIENT TO TREAT DJD
[2018-03-24] MEDS ORDERED: SODIUM BICARBONATE 8.4% - 50 MEQ in SODIUM CHLORIDE 0.45% 1,000 ML IV SCH (16:01)
--- NOTE | 2018-03-24 16:11 | CONS ---
DATE OF CONSULTATION: 03/24/2018 ORTHOPEDICS CONSULTATION/[facility] Patient is a 77-year-old male status post fall, complaining of pain in both his knees. He has had a long history of arthritis in his knees. He was on the floor for quite some time and came in with rhabdomyolysis and is getting hydrated. PHYSICAL EXAMINATION: He has abrasion to the anterior aspect of both his knees. He has the ability to straight leg raise, good stability varus/valgus. Calf is soft, nontender. Range of motion is 0 to 100 degrees. Vascular intact. X-ray shows significant medial DJD with bilateral lesions. 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 PLAN: Acutely patient needs to have RICE. He can be out of bed with physical therapy. Weightbearing as tolerated, and can be discharged. We will follow up his DJD as an outpatient, as patient is very overweight, he would need to lose weight before any joint replacement surgery can be contemplated. He needs to lose weight, strengthening exercises, nonsteroidals, and we will see him as an outpatient for followup as well. FRANKIE ROMERO M.D. [id number]
[2018-03-25] MEDS: MECLIZINE HCL 25 MG TABLET (FP) PO PRN ×2 (06:24→17:16)
[2018-03-25] MEDS: ACETAMINOPHEN 325 MG TABLET (FP) PO SCH ×4 (06:24→17:16)
[2018-03-25] MEDS: INSULIN SLIDING SCALE (NOVOLOG) 1 VIAL SQ SCH ×4 (06:25→22:12)
[2018-03-25 08:57] LABS: ALK PHOS 53 U/L (32-92); ANION GAP 7 (8-16); BILIRUBIN,TOTAL 0.7 mg/dl (0.2-1.0); BLOOD UREA NITROGEN 12 mg/dl (7-18); CHLORIDE 99 mmol/L (98-107); CO2 28 mmol/L (22-28); CREATININE 0.8 mg/dl (0.6-1.3); GLUCOSE,RANDOM 121 mg/dl (74-106); MAGNESIUM 1.7 mg/dL (1.8-2.4); POTASSIUM 3.6 mmol/L (3.5-5.1); SGPT/ALT 144 U/L (10-40); SODIUM 134 mmol/L (136-145); TOT PROT 5.5 g/dl (6.4-8.3)
[2018-03-25 09:14] LABS: SGOT/AST 407 U/L (10-42)
[2018-03-25] MEDS ORDERED: MAGNESIUM SULFATE IN WATER 2 GM/50 ML IVPB IVPB ONE (09:28)
[2018-03-25] MEDS: APIXABAN 5 MG TABLET PO SCH ×2 (09:39→22:11)
[2018-03-25] MEDS: MUPIROCIN 2% TOPICAL OINTMENT 22 GM TUBE TP SCH ×2 (09:39→22:12)
[2018-03-25] MEDS ORDERED: PT OWN MED DRAWER 7, Y5N ONE (09:50)
[2018-03-25] MEDS: NYSTATIN POWDER 100,000 UNITS/GM - 15 GM TOPICAL POWDER TP SCH (09:51)
[2018-03-25] MEDS ORDERED: CARVEDILOL 12.5 MG TABLET (FP) PO SCH (10:00)
--- NOTE | 2018-03-25 10:37 | PN ---
Physical Exam: SUBJECTIVE: Patient seen and examined, denies any chest pain or shortness of breath, reports feeling well OBJECTIVE:Patient is 77 y/o male with a past medical history of hypertension and bph, patient self discontinued his mediations 2 years ago. patient was admitted from the emergency department for rhabdomyolosis, new onset afib. Vital Signs Period Temp Pulse Resp BP Sys/[place] Pulse Ox Last 24 Hr 98.2 F-99.3 F 74-85 18-20 162-177/52-83 92-95 GENERAL: obese, awake, alert, and fully oriented, in no acute distress. HEAD: Normal with no signs of trauma. EYES: PERRL, extraocular movements intact, sclera anicteric, conjunctiva clear. No ptosis. ENT: Ears normal, nares patent, oropharynx clear without exudates, moist mucous membranes. NECK: Trachea midline, full range of motion, supple. LUNGS: Breath sounds equal, clear to auscultation bilaterally, crackles to base , no accessory muscle use. HEART: Regular rate and rhythm, S1, S2, 2/6 systolic murmur, rub or gallop. ABDOMEN: Soft, nontender, nondistended, normoactive bowel sounds, no guarding, no rebound, no hepatosplenomegaly, no masses. EXTREMITIES: 2+ pulses, warm, well-perfused, +2 LE edema. NEUROLOGICAL: Cranial nerves II through XII grossly intact. Normal speech, gait not observed. PSYCH: Normal mood, normal affect. SKIN: tinea noted to groin, abrasions to bilateral anterior knees, Warm, dry, normal turgor, no rashes or lesions noted Laboratory Results - last 24 hr 03/24/18 03/24/18 03/24/18 07:25 07:40 07:40 Sodium Potassium Chloride Carbon Dioxide 28 Anion Gap 8 BUN 13 Creatinine 0.7 Creat Clearance w eGFR > 60 POC Glucometer Random Glucose 112 H Calcium 7.8 L Phosphorus 3.0 Magnesium 2.0 Total Bilirubin 0.5 AST 595 H ALT 181 H Alkaline Phosphatase 69 Creatine Kinase 53788 H Creatine Kinase Index 0.1 CK-MB (CK-2) 26.668 H Troponin I 0.14 H D Total Protein 5.9 L Albumin 3.0 L 03/24/18 03/24/18 03/24/18 12:47 14:10 17:37 Sodium Potassium Chloride Carbon Dioxide Anion Gap BUN Creatinine Creat Clearance w eGFR POC Glucometer 167 117 Random Glucose Calcium Phosphorus Magnesium Total Bilirubin AST ALT Alkaline Phosphatase Creatine Kinase 19340 H Creatine Kinase Index 0.1 CK-MB (CK-2) 23.9 H Troponin I Total Protein Albumin 03/24/18 03/25/18 03/25/18 20:59 06:08 08:00 Sodium 134 L Potassium 3.6 Chloride 99 Carbon Dioxide 28 Anion Gap 7 L BUN 12 D Creatinine 0.8 Creat Clearance w eGFR > 60 POC Glucometer 140 122 Random Glucose 121 H Calcium 8.0 L Phosphorus Magnesium 1.7 L Total Bilirubin 0.7 D AST 407 H D ALT 144 H Alkaline Phosphatase 53 Creatine Kinase 98492 H Creatine Kinase Index 0.0 CK-MB (CK-2) 7.3 H Troponin I Total Protein 5.5 L Albumin 3.0 L Laboratory Tests 03/23/18 03/23/18 03/24/18 15:37 22:00 03:15 Creatine Kinase 72229 H 00732 H 54774 H 03/24/18 03/24/18 03/25/18 07:40 14:10 08:00 Creatine Kinase 83104 H 43461 H 50696 H Active Medications Generic Name Dose Route Start Last Admin Trade Name Freq PRN Reason Stop Dose Admin Acetaminophen 650 mg 03/23/18 18:00 03/25/18 06:24 Tylenol - PO 650 mg Q6HPO DANIEL Administration Apixaban 5 mg 03/24/18 12:30 03/25/18 09:39 Eliquis - PO 5 mg BID DANIEL Administration Carvedilol 12.5 mg 03/25/18 10:00 03/25/18 09:39 Coreg - PO 12.5 mg BID DANIEL Administration Sodium Bicarbonate 50 meq/ 1,050 mls @ 65 mls/hr 03/24/18 16:01 03/24/18 18: 00 Sodium Chloride IV 65 mls/hr ASDIR DANIEL Administration Insulin Aspart 1 vial 03/23/18 22:00 03/25/18 06:25 Novolog Vial Sliding Scale - SQ Not Given ACHS [facility] Protocol Meclizine HCl 25 mg 03/24/18 11:31 03/25/18 06:24 Antivert - PO 25 mg Q6H PRN Administration VERTIGO Mupirocin 1 applic 03/24/18 12:30 03/25/18 09:39 Bactroban 2% Ointment - TP 1 applic BID DANIEL Administration Nystatin 1 applic 03/23/18 22:29 03/25/18 09:51 Nystop Powder - TP 1 applic DAILY DANIEL Administration IMAGING chest xray: cardiomegly no infillirates xray of bilateral knees: no acute fracture no dislocation, moderate degenerative changes bilateral lower extremity doppler: no evidence of dvt echo LVH, trace MR ASSESSMENT/PLAN: 1) cardiology new onset afib - rate controlled, continue coreg, echo, continous cardiac monitoring - continue eliquis hypertension - coreg, b/p remains above goal, close monitoring continue b/p monitoring q4h hyperlipidemia - pending lipid profile 2) nephrology rhabdomylosis - ck trending downward, signs of fluid overload noted on exam, hold IVF. - trend ck q6h - nephrology consulted and following 3) endo DM -elevated hemoglobin a1c, fingersticks achs, regular insulin sliding scale 4) GI transanimitis -benign abdominal exam, ast/alt trending downward. f/e/n -low sodium - replete electrolytes prn ppx -heparin sq - scd - pepcid dispo: pt requires in patient admission Visit type - Emergency Visit Emergency Visit: Yes ED Registration Date: 03/25/18 Care time: The patient presented to the Emergency Department on the above date and was hospitalized for further evaluation of their emergent condition. - New Patient This patient is new to me today: No - Critical Care Critical Care patient: No - Discharge Referral Referred to [facility] Med P.C.: No
[2018-03-25] MEDS ORDERED: MAGNESIUM OXIDE 400 MG TABLET (FP) PO ONE (11:04)
--- NOTE | 2018-03-25 11:04 | PN ---
Progress Note, Physician History of Present Illness: Pt seen and examined at bedside. He complains of lower ext edema. He denies shortness of breath. - Current Medication List Current Medications: Active Medications Acetaminophen (Tylenol -) 650 mg PO Q6HPO [facility] Last Admin: 03/25/18 06:24 Dose: 650 mg Apixaban (Eliquis -) 5 mg PO BID [facility] Last Admin: 03/25/18 09:39 Dose: 5 mg Carvedilol (Coreg -) 12.5 mg PO BID [facility] Last Admin: 03/25/18 09:39 Dose: 12.5 mg Insulin Aspart (Novolog Vial Sliding Scale -) 1 vial SQ ACHS [facility] PRN Reason: Protocol Last Admin: 03/25/18 06:25 Dose: Not Given Meclizine HCl (Antivert -) 25 mg PO Q6H PRN PRN Reason: VERTIGO Last Admin: 03/25/18 06:24 Dose: 25 mg Mupirocin (Bactroban 2% Ointment -) 1 applic TP BID [facility] Last Admin: 03/25/18 09:39 Dose: 1 applic Nystatin (Nystop Powder -) 1 applic TP DAILY [facility] Last Admin: 03/25/18 09:51 Dose: 1 applic - Objective Vital Signs: Vital Signs Temperature 98.2 F 03/25/18 09:52 Pulse Rate 74 03/25/18 09:52 Respiratory Rate 18 03/25/18 09:52 Blood Pressure 174/52 03/25/18 09:52 O2 Sat by Pulse Oximetry (%) 92 L 03/25/18 09:52 Constitutional: Yes: Calm Eyes: Yes: Conjunctiva Clear HENT: Yes: Atraumatic Neck: Yes: Supple Cardiovascular: Yes: S1, S2 Respiratory: Yes: Wheezes Gastrointestinal: Yes: Soft, Abdomen, Obese Genitourinary: Yes: WNL Musculoskeletal: Yes: Joint Stiffness Edema: Yes Edema: LLE: 2+, RLE: 2+ Neurological: Yes: Oriented Psychiatric: Yes: Oriented Labs: CBC, BMP 03/24/18 07:25 03/25/18 08:00 Problem List - Problems (1) Obesity Code(s): E66.9 - OBESITY, UNSPECIFIED (2) Rhabdomyolysis Code(s): M62.82 - RHABDOMYOLYSIS (3) Severe obesity (BMI >= 40) Code(s): E66.01 - MORBID (SEVERE) OBESITY DUE TO EXCESS CALORIES Assessment/Plan Current Medications Generic Name Dose Route Start Last Admin Trade Name Xuan PRN Reason Stop Dose Admin Acetaminophen 650 mg 03/23/18 18:00 03/25/18 06:24 Tylenol - PO 650 mg Q6HPO [facility]ANIEL Administration Apixaban 5 mg 03/24/18 12:30 03/25/18 09:39 Eliquis - PO 5 mg BID DANIEL Administration Carvedilol 12.5 mg 03/25/18 10:00 03/25/18 09:39 Coreg - PO 12.5 mg BID DANIEL Administration Insulin Aspart 1 vial 03/23/18 22:00 03/25/18 06:25 Novolog Vial Sliding Scale - SQ Not Given ACHS [facility] Protocol Meclizine HCl 25 mg 03/24/18 11:31 03/25/18 06:24 Antivert - PO 25 mg Q6H PRN Administration VERTIGO Mupirocin 1 applic 03/24/18 12:30 03/25/18 09:39 Bactroban 2% Ointment - TP 1 applic BID DANIEL Administration Nystatin 1 applic 03/23/18 22:29 03/25/18 09:51 Nystop Powder - TP 1 applic DAILY DANIEL Administration Laboratory Tests 03/25/18 08:00 Magnesium 1.7 L Impression 1. Rhabdo 2. transaminitis 3. obesity 4. DM 5. vertigo 6. knee pain 7. back pain 8. s/p fall x 2 Plan - cpk is improving - will hold fluids as he is getting volume overloaded - can give a dose of lasix of he developes any pulmonary symptoms - elevate legs when sitting in chair - cont to trend cpk - pt has rhabdo likely from being on the floor for a prolonged period of time - replace magnesium - monitor lfts Dr Brower
[2018-03-25] MEDS ORDERED: POTASSIUM CHLORIDE TABS 20 MEQ TABLET.ER (FP) PO ONE (13:28)
[2018-03-25] MEDS: CARVEDILOL 6.25 MG TABLET (FP) PO SCH (22:11)
[2018-03-26] MEDS: ACETAMINOPHEN 325 MG TABLET (FP) PO SCH ×4 (00:01→17:42)
[2018-03-26] MEDS: INSULIN SLIDING SCALE (NOVOLOG) 1 VIAL SQ SCH ×4 (06:08→21:27)
[2018-03-26 08:25] LABS: BASO % 0.1 % (0-2.0); EOS % 0.1 % (0-4.5); HEMATOCRIT 38.4 % (35.4-49); LYMPH % 21.9 % (8-40); MCHC 33.8 g/dl (32.0-35.9); MEAN CELL VOLUME 85.8 fl (80-96); MEAN PLT VOLUME 7.1 fl (7.5-11.1); MONO % 10.5 % (3.8-10.2); NEUT % 67.4 % (42.8-82.8); PLATELET COUNT 213 K/MM3 (134-434); RBC 4.48 M/mm3 (4.00-5.60); RDW 14.1 % (11.9-15.9)
[2018-03-26 08:39] LABS: ALK PHOS 54 U/L (32-92); ANION GAP 4 (8-16); BILIRUBIN,TOTAL 0.8 mg/dl (0.2-1.0); BLOOD UREA NITROGEN 14 mg/dl (7-18); CALCIUM 8.3 mg/dl (8.4-10.2); CHLORIDE 102 mmol/L (98-107); CO2 31 mmol/L (22-28); GLUCOSE,RANDOM 117 mg/dl (74-106); PHOSPHOROUS 3.1 mg/dl (2.5-4.6); POTASSIUM 4.2 mmol/L (3.5-5.1); SGPT/ALT 155 U/L (10-40); SODIUM 137 mmol/L (136-145); TOT PROT 5.7 g/dl (6.4-8.3)
[2018-03-26 08:43] LABS: CHOLESTEROL 154 mg/dl; HDL CHOLESTEROL 24 mg/dl (29-89); LDL CHOLESTEROL (ONLY DFH) 97 mg/dl; TRIGLYCERIDES 166 mg/dl (35-160)
[2018-03-26] MEDS: CARVEDILOL 6.25 MG TABLET (FP) PO SCH ×2 (10:16→21:28)
[2018-03-26] MEDS: APIXABAN 5 MG TABLET PO SCH ×2 (10:16→21:28)
[2018-03-26] MEDS: NYSTATIN POWDER 100,000 UNITS/GM - 15 GM TOPICAL POWDER TP SCH (10:16)
[2018-03-26] MEDS: MUPIROCIN 2% TOPICAL OINTMENT 22 GM TUBE TP SCH ×2 (10:17→21:30)
--- NOTE | 2018-03-26 10:22 | PN ---
Physical Exam: SUBJECTIVE: Patient seen and examined OBJECTIVE: Vital Signs Period Temp Pulse Resp BP Sys/[place] Pulse Ox Last 24 Hr 97.8 F-98.3 F 58-66 18-20 116-163/55-79 93-98 GENERAL: The patient is awake, alert, and fully oriented, in no acute distress. HEAD: Normal with no signs of trauma. EYES: PERRL, extraocular movements intact, sclera anicteric, conjunctiva clear. No ptosis. ENT: Ears normal, nares patent, oropharynx clear without exudates, moist mucous membranes. NECK: Trachea midline, full range of motion, supple. LUNGS: Breath sounds equal, clear to auscultation bilaterally, no wheezes, no crackles, no accessory muscle use. HEART: Regular rate and rhythm, S1, S2 without murmur, rub or gallop. ABDOMEN: Soft, nontender, nondistended, normoactive bowel sounds, no guarding, no rebound, no hepatosplenomegaly, no masses. EXTREMITIES: 2+ pulses, warm, well-perfused, no edema. NEUROLOGICAL: Cranial nerves II through XII grossly intact. Normal speech, gait not observed. PSYCH: Normal mood, normal affect. SKIN: Warm, dry, normal turgor, no rashes or lesions noted Laboratory Results - last 24 hr 03/25/18 03/25/18 03/25/18 08:00 11:46 16:41 WBC RBC Hgb Hct MCV MCH MCHC RDW Plt Count MPV Neutrophils % Lymphocytes % Monocytes % Eosinophils % Basophils % POC Glucometer 145 173 Creatine Kinase Creatine Kinase Index 0.0 CK-MB (CK-2) 7.3 H Triglycerides Cholesterol Total LDL Cholesterol HDL Cholesterol TSH 03/25/18 03/25/18 03/25/18 18:05 22:10 Unknown WBC RBC Hgb Hct MCV MCH MCHC RDW Plt Count MPV Neutrophils % Lymphocytes % Monocytes % Eosinophils % Basophils % POC Glucometer 139 Creatine Kinase 44347 H Creatine Kinase Index 0.0 CK-MB (CK-2) 11.5 H Triglycerides Cholesterol Total LDL Cholesterol HDL Cholesterol TSH 2.37 03/26/18 03/26/18 03/26/18 06:07 07:21 07:21 WBC 8.0 RBC 4.48 Hgb 13.0 Hct 38.4 MCV 85.8 MCH 29.0 MCHC 33.8 RDW 14.1 Plt Count 213 MPV 7.1 L Neutrophils % 67.4 Lymphocytes % 21.9 D Monocytes % 10.5 H Eosinophils % 0.1 Basophils % 0.1 POC Glucometer 107 Creatine Kinase Creatine Kinase Index CK-MB (CK-2) Triglycerides 166 H Cholesterol 154 Total LDL Cholesterol 97 HDL Cholesterol 24 L TSH Active Medications Generic Name Dose Route Start Last Admin Trade Name Freq PRN Reason Stop Dose Admin Acetaminophen 650 mg 03/23/18 18:00 03/26/18 06:03 Tylenol - PO 650 mg Q6HPO DANIEL Administration Apixaban 5 mg 03/24/18 12:30 03/25/18 22:11 Eliquis - PO 5 mg BID DANIEL Administration Carvedilol 6.25 mg 03/25/18 22:00 03/25/18 22:11 Coreg - PO 6.25 mg BID DANIEL Administration Insulin Aspart 1 vial 03/23/18 22:00 03/26/18 06:08 Novolog Vial Sliding Scale - SQ Not Given ACHS [facility] Protocol Meclizine HCl 25 mg 03/24/18 11:31 03/25/18 17:16 Antivert - PO 25 mg Q6H PRN Administration VERTIGO Mupirocin 1 applic 03/24/18 12:30 03/25/18 22:12 Bactroban 2% Ointment - TP 1 applic BID DANIEL Administration Nystatin 1 applic 03/23/18 22:29 03/25/18 09:51 Nystop Powder - TP 1 applic DAILY DANIEL Administration ASSESSMENT/PLAN:
[2018-03-26 10:25] LABS: CREATININE < 0.8 mg/dl (0.6-1.3); SGOT/AST 462 U/L (10-42)
[2018-03-26] MEDS ORDERED: FUROSEMIDE 40 MG/4 ML INJECTABLE VIAL IVPUSH ONE ×2 (10:27→14:00)
[2018-03-26] MEDS ORDERED: PT OWN MED DRAWER 7, Y5N ONE ×2 (10:42→21:29)
--- NOTE | 2018-03-26 12:34 | PN ---
Progress Note, Physician History of Present Illness: Pt seen and examined at bedside. He complains of swelling in his legs and did have shortness of breath this morning. - Current Medication List Current Medications: Active Medications Acetaminophen (Tylenol -) 650 mg PO Q6HPO [facility] Last Admin: 03/26/18 11:49 Dose: 650 mg Apixaban (Eliquis -) 5 mg PO BID [facility] Last Admin: 03/26/18 10:16 Dose: 5 mg Carvedilol (Coreg -) 6.25 mg PO BID [facility] Last Admin: 03/26/18 10:16 Dose: 6.25 mg Insulin Aspart (Novolog Vial Sliding Scale -) 1 vial SQ ACHS [facility] PRN Reason: Protocol Last Admin: 03/26/18 11:50 Dose: Not Given Meclizine HCl (Antivert -) 25 mg PO Q6H PRN PRN Reason: VERTIGO Last Admin: 03/25/18 17:16 Dose: 25 mg Mupirocin (Bactroban 2% Ointment -) 1 applic TP BID [facility] Last Admin: 03/26/18 10:17 Dose: 1 applic Nystatin (Nystop Powder -) 1 applic TP DAILY [facility] Last Admin: 03/26/18 10:16 Dose: 1 applic - Objective Vital Signs: Vital Signs Temperature 98.3 F 03/26/18 08:57 Pulse Rate 62 03/26/18 08:57 Respiratory Rate 18 03/26/18 08:57 Blood Pressure 163/79 03/26/18 08:57 O2 Sat by Pulse Oximetry (%) 98 03/26/18 08:55 Constitutional: Yes: Calm Eyes: Yes: Conjunctiva Clear HENT: Yes: Atraumatic Neck: Yes: Supple Cardiovascular: Yes: S1, S2 Respiratory: Yes: Rhonchi Gastrointestinal: Yes: Soft, Abdomen, Obese Genitourinary: Yes: WNL Musculoskeletal: Yes: Other (knee pain) Edema: Yes Edema: LLE: 2+, RLE: 2+ Neurological: Yes: Oriented Psychiatric: Yes: Oriented Labs: CBC, BMP 03/26/18 07:21 03/26/18 07:21 Problem List - Problems (1) Obesity Code(s): E66.9 - OBESITY, UNSPECIFIED (2) Rhabdomyolysis Code(s): M62.82 - RHABDOMYOLYSIS (3) Severe obesity (BMI >= 40) Code(s): E66.01 - MORBID (SEVERE) OBESITY DUE TO EXCESS CALORIES Assessment/Plan Current Medications Generic Name Dose Route Start Last Admin Trade Name Xuan PRN Reason Stop Dose Admin Acetaminophen 650 mg 03/23/18 18:00 03/26/18 11:49 Tylenol - PO 650 mg Q6HPO DANIEL Administration Apixaban 5 mg 03/24/18 12:30 03/26/18 10:16 Eliquis - PO 5 mg BID DANIEL Administration Carvedilol 6.25 mg 03/25/18 22:00 03/26/18 10:16 Coreg - PO 6.25 mg BID DANIEL Administration Insulin Aspart 1 vial 03/23/18 22:00 03/26/18 11:50 Novolog Vial Sliding Scale - SQ Not Given ACHS [facility] Protocol Meclizine HCl 25 mg 03/24/18 11:31 03/25/18 17:16 Antivert - PO 25 mg Q6H PRN Administration VERTIGO Mupirocin 1 applic 03/24/18 12:30 03/26/18 10:17 Bactroban 2% Ointment - TP 1 applic BID DANIEL Administration Nystatin 1 applic 03/23/18 22:29 03/26/18 10:16 Nystop Powder - TP 1 applic DAILY DANIEL Administration Impression 1. Rhabdo 2. transaminitis 3. obesity 4. DM 5. vertigo 6. knee pain 7. back pain 8. s/p fall x 2 Plan - cpk continue to improve - fluids held as he is deveoping signs of overload - dose of lasix given - monitor lytes and cpk - repeat ua - discussed with medical team - pt has rhabdo likely from being on the floor for a prolonged period of time - monitor lfts Dr Brower
--- NOTE | 2018-03-26 13:07 | PN ---
Physical Exam: SUBJECTIVE: Patient seen and examined, sitting in bedside chair, reports increases shortness of breath upon lying down OBJECTIVE: Patient is 77 y/o male with a past medical history of hypertension and bph, patient self discontinued his mediations 2 years ago. patient was admitted from the emergency department for rhabdomyolosis, new onset afib. Vital Signs Period Temp Pulse Resp BP Sys/[place] Pulse Ox Last 24 Hr 97.8 F-98.3 F 58-66 18-20 116-163/55-79 93-98 GENERAL: obese, awake, alert, and fully oriented, in no acute distress. HEAD: Normal with no signs of trauma. EYES: PERRL, extraocular movements intact, sclera anicteric, conjunctiva clear. No ptosis. ENT: Ears normal, nares patent, oropharynx clear without exudates, moist mucous membranes. NECK: Trachea midline, full range of motion, supple. LUNGS: Breath sounds equal, clear to auscultation bilaterally, crackles to base , no accessory muscle use. HEART: Regular rate and rhythm, S1, S2, 2/6 systolic murmur, rub or gallop. ABDOMEN: Soft, nontender, nondistended, normoactive bowel sounds, no guarding, no rebound, no hepatosplenomegaly, no masses. EXTREMITIES: 2+ pulses, warm, well-perfused, +2 LE edema, onchomycosis to bilateral toenails NEUROLOGICAL: Cranial nerves II through XII grossly intact. Normal speech, gait not observed. PSYCH: Normal mood, normal affect. SKIN: tinea noted to groin, abrasions to bilateral anterior knees, Warm, dry, normal turgor Laboratory Results - last 24 hr 03/25/18 03/25/18 03/25/18 16:41 18:05 22:10 WBC RBC Hgb Hct MCV MCH MCHC RDW Plt Count MPV Neutrophils % Lymphocytes % Monocytes % Eosinophils % Basophils % Sodium Potassium Chloride Carbon Dioxide Anion Gap BUN Creatinine Creat Clearance w eGFR POC Glucometer 173 139 Random Glucose Calcium Phosphorus Magnesium Total Bilirubin AST ALT Alkaline Phosphatase Creatine Kinase 21136 H Creatine Kinase Index 0.0 CK-MB (CK-2) 11.5 H Total Protein Albumin Triglycerides Cholesterol Total LDL Cholesterol HDL Cholesterol TSH 03/25/18 03/26/18 03/26/18 Unknown 06:07 07:21 WBC RBC Hgb Hct MCV MCH MCHC RDW Plt Count MPV Neutrophils % Lymphocytes % Monocytes % Eosinophils % Basophils % Sodium 137 Potassium 4.2 Chloride 102 Carbon Dioxide 31 H Anion Gap 4 L BUN 14 Creatinine < 0.8 Creat Clearance w eGFR > 60 POC Glucometer 107 Random Glucose 117 H Calcium 8.3 L Phosphorus 3.1 Magnesium 2.0 Total Bilirubin 0.8 AST 462 H ALT 155 H Alkaline Phosphatase 54 Creatine Kinase 15475 H Creatine Kinase Index 0.0 CK-MB (CK-2) 11.1 H Total Protein 5.7 L Albumin 3.0 L Triglycerides Cholesterol Total LDL Cholesterol HDL Cholesterol TSH 2.37 03/26/18 03/26/18 03/26/18 07:21 07:21 11:29 WBC 8.0 RBC 4.48 Hgb 13.0 Hct 38.4 MCV 85.8 MCH 29.0 MCHC 33.8 RDW 14.1 Plt Count 213 MPV 7.1 L Neutrophils % 67.4 Lymphocytes % 21.9 D Monocytes % 10.5 H Eosinophils % 0.1 Basophils % 0.1 Sodium Potassium Chloride Carbon Dioxide Anion Gap BUN Creatinine Creat Clearance w eGFR POC Glucometer 122 Random Glucose Calcium Phosphorus Magnesium Total Bilirubin AST ALT Alkaline Phosphatase Creatine Kinase Creatine Kinase Index CK-MB (CK-2) Total Protein Albumin Triglycerides 166 H Cholesterol 154 Total LDL Cholesterol 97 HDL Cholesterol 24 L TSH Active Medications Generic Name Dose Route Start Last Admin Trade Name Freq PRN Reason Stop Dose Admin Acetaminophen 650 mg 03/23/18 18:00 03/26/18 11:49 Tylenol - PO 650 mg Q6HPO DANIEL Administration Apixaban 5 mg 03/24/18 12:30 03/26/18 10:16 Eliquis - PO 5 mg BID DANIEL Administration Carvedilol 6.25 mg 03/25/18 22:00 03/26/18 10:16 Coreg - PO 6.25 mg BID DANIEL Administration Insulin Aspart 1 vial 03/23/18 22:00 03/26/18 11:50 Novolog Vial Sliding Scale - SQ Not Given ACHS [facility] Protocol Meclizine HCl 25 mg 03/24/18 11:31 03/25/18 17:16 Antivert - PO 25 mg Q6H PRN Administration VERTIGO Mupirocin 1 applic 03/24/18 12:30 03/26/18 10:17 Bactroban 2% Ointment - TP 1 applic BID DANIEL Administration Nystatin 1 applic 03/23/18 22:29 03/26/18 10:16 Nystop Powder - TP 1 applic DAILY DANIEL Administration IMAGING chest xray: cardiomegly no infillirates xray of bilateral knees: no acute fracture no dislocation, moderate degenerative changes bilateral lower extremity doppler: no evidence of dvt echo LVH, trace MR chest xray 03/26: left hemidiaphragm, prominent central vascular markings ASSESSMENT/PLAN: 1) cardiology new onset afib - rate controlled, continue coreg, continuous cardiac monitoring - continue eliquis hypertension - coreg, b/p remains above goal secondary to CHF, lasix 20mg iv x 2 ordered - close monitoring continue b/p monitoring q4h hyperlipidemia - lipid profile noted systolic congestive heart failure - elevated bnp lasix 20mg iv x 2 - strict i/o daily weight 2) nephrology rhabdomylosis - ck trending downward, continue to trend - nephrology consulted and following 3) endo DM -elevated hemoglobin a1c, fingersticks achs, regular insulin sliding scale 4) GI transanimitis -benign abdominal exam, ast/alt trending downward. f/e/n -low sodium - replete electrolytes prn ppx -heparin sq - scd - pepcid dispo: pt requires in patient admission Visit type - Emergency Visit Emergency Visit: Yes ED Registration Date: 03/25/18 Care time: The patient presented to the Emergency Department on the above date and was hospitalized for further evaluation of their emergent condition. - New Patient This patient is new to me today: No - Critical Care Critical Care patient: No - Discharge Referral Referred to [facility] No
--- NOTE | 2018-03-26 14:30 | PN ---
Progress Note (short form) - Note Progress Note: cc: elevated trop S: Uptitrated carvedilol to 12.5 mg bid yesterday morning. In the evening sbp 's 116, HR 58. Decreased dose to 6.25 mg for yesterday's 10 pm dose. sbp now slightly above goal. Worsened LE edema and orthopnea on IVF. Stopped yesterday. CK continues to improve. LFT's have plateaued. s/p lasix 20 mg IV x 1 today for concerns of volume overload. O2 sat remains wnl. Current Medications Acetaminophen (Tylenol -) 650 mg PO Q6HPO [facility] Last Admin: 03/26/18 11:49 Dose: 650 mg Apixaban (Eliquis -) 5 mg PO BID [facility] Last Admin: 03/26/18 10:16 Dose: 5 mg Carvedilol (Coreg -) 6.25 mg PO BID [facility] Last Admin: 03/26/18 10:16 Dose: 6.25 mg Insulin Aspart (Novolog Vial Sliding Scale -) 1 vial SQ ACHS [facility] PRN Reason: Protocol Last Admin: 03/26/18 11:50 Dose: Not Given Meclizine HCl (Antivert -) 25 mg PO Q6H PRN PRN Reason: VERTIGO Last Admin: 03/25/18 17:16 Dose: 25 mg Mupirocin (Bactroban 2% Ointment -) 1 applic TP BID [facility] Last Admin: 03/26/18 10:17 Dose: 1 applic Nystatin (Nystop Powder -) 1 applic TP DAILY [facility] Last Admin: 03/26/18 10:16 Dose: 1 applic Vital Signs - 24 hr 03/25/18 03/25/18 03/25/18 14:23 17:00 18:00 Temperature 98.0 F 98 F Pulse Rate 62 58 L Respiratory 19 19 18 Rate Blood Pressure 125/57 116/55 O2 Sat by Pulse 94 L 93 L Oximetry (%) 03/25/18 03/25/18 03/26/18 20:49 22:50 06:00 Temperature 97.8 F 98.0 F Pulse Rate 62 66 Respiratory 18 19 20 Rate Blood Pressure 157/63 158/77 O2 Sat by Pulse 93 L 95 Oximetry (%) 03/26/18 03/26/18 08:55 08:57 Temperature 98.3 F Pulse Rate 62 Respiratory 20 18 Rate Blood Pressure 163/79 O2 Sat by Pulse 98 Oximetry (%) Intake & Output 03/24/18 03/25/18 03/26/18 03/27/18 07:59 07:59 07:59 07:59 Intake Total 2145 2355 1600 950 Output Total 1050 200 300 Balance 1095 2155 1300 950 Weight 297 lb 309 lb 0.2 oz 311 lb 0.6 oz nad, calm jvd tds but does not appear elevated, neck supple bibasilar rales, nl effort rrr nl s1, s2. no mrg. ext with trace dependent edema to thigh. no c/c excoriations on knees from fall. + bs soft nt nd. +dp/pt aaox3 no jaundice, diaphoresis. CBC, BMP 03/26/18 07:21 03/26/18 07:21 Laboratory Tests 03/25/18 03/26/18 03/26/18 Unknown 07:21 07:21 Magnesium 2.0 Total Bilirubin 0.8 ALT 155 H Creatine Kinase 83868 H Albumin 3.0 L Triglycerides 166 H Cholesterol 154 Total LDL Cholesterol 97 HDL Cholesterol 24 L TSH 2.37 ekg: nsr, early r wave progression. no acute ischemic changes. tele: sr/sb (50's) with frequent atrial runs. No recurrence of prolonged episode of afib/flutter. echo 03/2018: tds. bline conc lvh. nl lv fn. no rwma. impaired relaxation. nl rv size/fn. 1+ lae. mild-mod mac. cxr 03/23/18: mild bilateral perihilar increased lung markings. minimal atelectasis at left lung base. No congestion or infiltrates. cxr 03/26/18: elevated left hemidiaphragm. prominent central vascular markings ( increased slightly) but no clear congestion, effusions or infiltrate. Incidental infrahilar calcifications. LE dopplers: no dvt bilaterally. + edema of subcut tissue. ASSESSMENT/PLAN 77 yo with PMH of diabetes (per report) non compliant with diabetes medication for 2 years p/w LE edema/weakness/fall and found to have rhabdo. Hospital course complicated by new diagnosis of htn, paroxysmal afib and abnormal troponin. abnormal troponin - Intermediate troponin elevation (up to 0.18 in the setting of CK > 20,000, overall flat trend (still trending up in setting of ongoing uptrend in ck to 29, 000). Likely troponin leak 2/2 rhabdo (+/- demand from psvt). ekg without ischemic changes. No concern for ACS at the time. - can consider need for outpatient ischemic evaluation once acute issues resolve. - echo with nl systolic function. sob - S/P ivf rhabdo. stopped 03/25. No significant congestion on cxr, sats ok. + calcifications on cxr. Plan on further evaluation with chest ct. con't close monitoring of volume status. daily weights, I/O's, bmp. - consider bipap at night for orthopnea which may be 2/2 petra and not pulmonary edema. - echo with diastolic dysfunction, mild mod mac. rhabdo - CK improving. ongoing mgm't per renal. - 03/26: IVF stopped yesterday. s/p lasix 20 mg IV today. On my exam, pt without signs of worsening right sided congestion. LE edema stable from admit and per patient at his baseline. LFT's plateaued today --> may be from stopping IVF, low suspicion for slight elevation from hepatic congestion. OK to resume IVF at discretion of renal consult. discussed with renal. Can use OSKAR wraps to manage LE edema. new diagnosis of paroxysmal aflutter/fib - 5-10 min stretches of aflutter/fib on admit. new diagnosis - currently rate controlled in SR without recurrence on coreg 6.25 mg bid, con' t. Intiated AC with eliquis here. - echo as above. - consider petra eval as outpatient. htn - not previously on anti-htn regimen. initiated coreg here (also for rate control). Patient with asx bradycardia at 12.5 bid dose, but suboptimal bp control on 6.25 bid dose. Patient diabetic, would benefit from ACEI. Will d/w renal. s/p mechanical fall/LE weakness - ongoing mgm't per pmd,
[2018-03-26 16:31] LABS: PH,URINE 5.5 (4.5-8); URINE APPEARANCE Clear; URINE BILIRUBIN Negative (NEGATIVE); URINE GLUCOSE (UA) Negative (NEGATIVE); URINE KETONE Negative (NEGATIVE); URINE LEUK ESTERASE Negative (NEGATIVE); URINE NITRITE Negative (NEGATIVE); URINE PROTEIN Negative (NEGATIVE); URINE UROBILINOGEN 0.2 (0.2-1.0)
[2018-03-26 16:32] LABS: URINE BLOOD 2+ (NEGATIVE); URINE COLOR YELLOW
[2018-03-26 19:15] LABS: URINE WBC 0-2 (0-2)
[2018-03-27] MEDS: ACETAMINOPHEN 325 MG TABLET (FP) PO SCH ×4 (00:37→17:19)
[2018-03-27] MEDS: INSULIN SLIDING SCALE (NOVOLOG) 1 VIAL SQ SCH ×4 (06:27→21:28)
[2018-03-27] MEDS: MECLIZINE HCL 25 MG TABLET (FP) PO PRN ×3 (06:37→17:19)
[2018-03-27 08:31] LABS: BASO % 0.1 % (0-2.0); EOS % 0.4 % (0-4.5); HEMOGLOBIN 13.4 GM/dl (11.7-16.9); LYMPH % 21.9 % (8-40); MCH 28.4 pg (25.7-33.7); MCHC 33.5 g/dl (32.0-35.9); MEAN CELL VOLUME 84.8 fl (80-96); MEAN PLT VOLUME 7.4 fl (7.5-11.1); MONO % 9.5 % (3.8-10.2); NEUT % 68.1 % (42.8-82.8); PLATELET COUNT 224 K/MM3 (134-434); RBC 4.72 M/mm3 (4.00-5.60); RDW 13.9 % (11.9-15.9); WHITE BLOOD COUNT 9.2 K/mm3 (4.0-10.8)
[2018-03-27] MEDS: MUPIROCIN 2% TOPICAL OINTMENT 22 GM TUBE TP SCH ×2 (09:28→21:28)
[2018-03-27 09:30] LABS: ALK PHOS 54 U/L (32-92); ANION GAP 8 (8-16); BILIRUBIN,TOTAL 0.9 mg/dl (0.2-1.0); BLOOD UREA NITROGEN 12 mg/dl (7-18); CALCIUM 8.3 mg/dl (8.4-10.2); CHLORIDE 96 mmol/L (98-107); CO2 31 mmol/L (22-28); CREATININE 0.7 mg/dl (0.6-1.3); GLUCOSE,RANDOM 124 mg/dl (74-106); MAGNESIUM 1.6 mg/dL (1.8-2.4); PHOSPHOROUS 3.2 mg/dl (2.5-4.6); POTASSIUM 3.6 mmol/L (3.5-5.1); SGOT/AST 498 U/L (10-42); SGPT/ALT 167 U/L (10-40); SODIUM 135 mmol/L (136-145); TOT PROT 5.7 g/dl (6.4-8.3)
[2018-03-27] MEDS: APIXABAN 5 MG TABLET PO SCH ×2 (09:32→21:27)
[2018-03-27] MEDS: LISINOPRIL 10 MG TABLET (FP) PO SCH (09:32)
[2018-03-27] MEDS: CARVEDILOL 6.25 MG TABLET (FP) PO SCH ×2 (09:32→21:27)
[2018-03-27] MEDS: NYSTATIN POWDER 100,000 UNITS/GM - 15 GM TOPICAL POWDER TP SCH (09:32)
[2018-03-27] MEDS ORDERED: MAGNESIUM SULF 50% (8.12 MEQ/2 ML-1 GM VIAL) IVPB ONE (09:33)
[2018-03-27] MEDS ORDERED: MAGNESIUM SULFATE 1 GM in SODIUM CHLORIDE 100 ML IVPB ONE (10:00)
--- NOTE | 2018-03-27 10:03 | EKG ---
Test Reason : Blood Pressure : / mmHG Vent. Rate : 083 BPM Atrial Rate : 083 BPM P-R Int : 168 ms QRS Dur : 086 ms QT Int : 398 ms P-R-T Axes : 059 018 045 degrees QTc Int : 467 ms NORMAL SINUS RHYTHM POSSIBLE LEFT ATRIAL ENLARGEMENT WHEN COMPARED WITH ECG OF 23-MAR-2018 16:17, MINIMAL CRITERIA FOR INFERIOR INFARCT ARE NO LONGER PRESENT Confirmed by LUISIOT COUGHLIN MD ([id number]) on 03/27/2018 10:03:08 AM Referred By: Confirmed By:LUISITO COUGHLIN MD
[2018-03-27] MEDS ORDERED: PT OWN MED DRAWER 7, Y5N ONE (12:03)
--- NOTE | 2018-03-27 13:15 | PN ---
Progress Note, Physician History of Present Illness: Pt seen and examined at bedside. He is awake and alert. He denies shortness of breath. He denies dysuria. - Current Medication List Current Medications: Active Medications Acetaminophen (Tylenol -) 650 mg PO Q6HPO [facility] Last Admin: 03/27/18 12:10 Dose: 650 mg Apixaban (Eliquis -) 5 mg PO BID [facility] Last Admin: 03/27/18 09:32 Dose: 5 mg Carvedilol (Coreg -) 6.25 mg PO BID [facility] Last Admin: 03/27/18 09:32 Dose: 6.25 mg Insulin Aspart (Novolog Vial Sliding Scale -) 1 vial SQ ACHS [facility] PRN Reason: Protocol Last Admin: 03/27/18 12:10 Dose: 2 unit Lisinopril (Prinivil) 10 mg PO DAILY [facility] Last Admin: 03/27/18 09:32 Dose: 10 mg Meclizine HCl (Antivert -) 25 mg PO Q6H PRN PRN Reason: VERTIGO Last Admin: 03/27/18 12:11 Dose: 25 mg Mupirocin (Bactroban 2% Ointment -) 1 applic TP BID [facility] Last Admin: 03/27/18 09:28 Dose: 1 applic Nystatin (Nystop Powder -) 1 applic TP DAILY [facility] Last Admin: 03/27/18 09:32 Dose: 1 applic - Objective Vital Signs: Vital Signs Temperature 97.9 F 03/27/18 06:00 Pulse Rate 70 03/27/18 06:00 Respiratory Rate 18 03/27/18 09:33 Blood Pressure 161/84 03/27/18 09:33 O2 Sat by Pulse Oximetry (%) 96 03/27/18 08:35 Constitutional: Yes: Calm Eyes: Yes: Conjunctiva Clear HENT: Yes: Atraumatic Cardiovascular: Yes: S1, S2 Respiratory: Yes: CTA Bilaterally Gastrointestinal: Yes: Soft, Abdomen, Obese Genitourinary: Yes: WNL Musculoskeletal: Yes: WNL Edema: Yes Edema: LLE: 1+, RLE: 1+ Integumentary: Yes: Bruising Neurological: Yes: Oriented Psychiatric: Yes: Oriented Labs: CBC, BMP 03/27/18 08:01 03/27/18 08:01 Problem List - Problems (1) Obesity Code(s): E66.9 - OBESITY, UNSPECIFIED (2) Rhabdomyolysis Code(s): M62.82 - RHABDOMYOLYSIS (3) Severe obesity (BMI >= 40) Code(s): E66.01 - MORBID (SEVERE) OBESITY DUE TO EXCESS CALORIES Assessment/Plan Current Medications Generic Name Dose Route Start Last Admin Trade Name Freq PRN Reason Stop Dose Admin Acetaminophen 650 mg 03/23/18 18:00 03/27/18 12:10 Tylenol - PO 650 mg Q6HPO DANIEL Administration Apixaban 5 mg 03/24/18 12:30 03/27/18 09:32 Eliquis - PO 5 mg BID DANIEL Administration Carvedilol 6.25 mg 03/25/18 22:00 03/27/18 09:32 Coreg - PO 6.25 mg BID DANIEL Administration Insulin Aspart 1 vial 03/23/18 22:00 03/27/18 12:10 Novolog Vial Sliding Scale - SQ 2 unit ACHS DANIEL Administration Protocol Lisinopril 10 mg 03/27/18 10:00 03/27/18 09:32 Prinivil PO 10 mg DAILY DANIEL Administration Meclizine HCl 25 mg 03/24/18 11:31 03/27/18 12:11 Antivert - PO 25 mg Q6H PRN Administration VERTIGO Mupirocin 1 applic 03/24/18 12:30 03/27/18 09:28 Bactroban 2% Ointment - TP 1 applic BID DANIEL Administration Nystatin 1 applic 03/23/18 22:29 03/27/18 09:32 Nystop Powder - TP 1 applic DAILY DANIEL Administration Laboratory Tests 03/26/18 03/26/18 03/27/18 07:21 16:00 08:01 Creatine Kinase 86385 H 74248 H Urine Protein Negative Urine Blood 2+ H Impression 1. Rhabdo 2. transaminitis 3. obesity 4. DM 5. vertigo 6. knee pain 7. back pain 8. s/p fall x 2 Plan - restart fluids as ck is rising, will use lower rate - discussed plan with medical team - repeat cpk in am - volume status is stable - elevate legs when sitting - repeat ua shows improvement - monitor liver function - pt has rhabdo likely from being on the floor for a prolonged period of time Dr Brower
--- NOTE | 2018-03-27 13:24 | PN ---
Physical Exam: SUBJECTIVE: Patient seen and examined, reports feeling much improved, reports improvement in shortness of breath. OBJECTIVE: Patient is 77 y/o male with a past medical history of hypertension and bph, patient self discontinued his mediations 2 years ago. patient was admitted from the emergency department for rhabdomyolosis, new onset afib. Vital Signs Period Temp Pulse Resp BP Sys/[place] Pulse Ox Last 24 Hr 97.9 F-98.3 F 67-73 18-20 152-171/63-85 93-96 PHYSICAL EXAM GENERAL: obese, awake, alert, and fully oriented, in no acute distress. HEAD: Normal with no signs of trauma. EYES: PERRL, extraocular movements intact, sclera anicteric, conjunctiva clear. No ptosis. ENT: Ears normal, nares patent, oropharynx clear without exudates, moist mucous membranes. NECK: Trachea midline, full range of motion, supple. LUNGS: Breath sounds equal, clear to auscultation bilaterally, crackles to right base, no accessory muscle use. HEART: Regular rate and rhythm, S1, S2, 2/6 systolic murmur, rub or gallop. ABDOMEN: Soft, nontender, nondistended, normoactive bowel sounds, no guarding, no rebound, no hepatosplenomegaly, no masses. EXTREMITIES: 2+ pulses, warm, well-perfused, +2 LE edema, onchomycosis to bilateral toenails NEUROLOGICAL: Cranial nerves II through XII grossly intact. Normal speech, gait not observed. PSYCH: Normal mood, normal affect. SKIN: tinea noted to groin, abrasions to bilateral anterior knees, Warm, dry, normal turgor Laboratory Results - last 24 hr 03/26/18 03/26/18 03/26/18 16:00 16:39 21:02 WBC RBC Hgb Hct MCV MCH MCHC RDW Plt Count MPV Neutrophils % Lymphocytes % Monocytes % Eosinophils % Basophils % Sodium Potassium Chloride Carbon Dioxide Anion Gap BUN Creatinine Creat Clearance w eGFR POC Glucometer 122 145 Random Glucose Calcium Phosphorus Magnesium Total Bilirubin AST ALT Alkaline Phosphatase Creatine Kinase Creatine Kinase Index CK-MB (CK-2) Total Protein Albumin Urine Color Yellow Urine Appearance Clear Urine pH 5.5 Ur Specific [place] 1.010 Urine Protein Negative Urine Glucose (UA) Negative Urine Ketones Negative Urine Blood 2+ H Urine Nitrite Negative Urine Bilirubin Negative Urine Urobilinogen 0.2 Ur Leukocyte Esterase Negative Urine RBC 2-5 Urine WBC 0-2 03/27/18 03/27/18 03/27/18 06:21 08:01 08:01 WBC 9.2 RBC 4.72 Hgb 13.4 Hct 40.0 MCV 84.8 MCH 28.4 MCHC 33.5 RDW 13.9 Plt Count 224 MPV 7.4 L Neutrophils % 68.1 Lymphocytes % 21.9 Monocytes % 9.5 Eosinophils % 0.4 D Basophils % 0.1 Sodium 135 L Potassium 3.6 Chloride 96 L Carbon Dioxide 31 H Anion Gap 8 BUN 12 Creatinine 0.7 Creat Clearance w eGFR > 60 POC Glucometer 120 Random Glucose 124 H Calcium 8.3 L Phosphorus 3.2 Magnesium 1.6 L Total Bilirubin 0.9 AST 498 H ALT 167 H Alkaline Phosphatase 54 Creatine Kinase 45608 H Creatine Kinase Index 0.0 CK-MB (CK-2) 12.9 H Total Protein 5.7 L Albumin 3.0 L Urine Color Urine Appearance Urine pH Ur Specific [place] Urine Protein Urine Glucose (UA) Urine Ketones Urine Blood Urine Nitrite Urine Bilirubin Urine Urobilinogen Ur Leukocyte Esterase Urine RBC Urine WBC 03/27/18 03/27/18 08:01 12:07 WBC RBC Hgb Hct MCV MCH MCHC RDW Plt Count MPV Neutrophils % Lymphocytes % Monocytes % Eosinophils % Basophils % Sodium Potassium Chloride Carbon Dioxide Anion Gap BUN Creatinine Creat Clearance w eGFR POC Glucometer 159 Random Glucose Calcium Phosphorus Magnesium Total Bilirubin AST ALT Alkaline Phosphatase Creatine Kinase Cancelled Creatine Kinase Index CK-MB (CK-2) Total Protein Albumin Urine Color Urine Appearance Urine pH Ur Specific [place] Urine Protein Urine Glucose (UA) Urine Ketones Urine Blood Urine Nitrite Urine Bilirubin Urine Urobilinogen Ur Leukocyte Esterase Urine RBC Urine WBC Active Medications Generic Name Dose Route Start Last Admin Trade Name Freq PRN Reason Stop Dose Admin Acetaminophen 650 mg 03/23/18 18:00 03/27/18 12:10 Tylenol - PO 650 mg Q6HPO DANIEL Administration Apixaban 5 mg 03/24/18 12:30 03/27/18 09:32 Eliquis - PO 5 mg BID DANIEL Administration Carvedilol 6.25 mg 03/25/18 22:00 03/27/18 09:32 Coreg - PO 6.25 mg BID DANIEL Administration Sodium Chloride 1,000 mls @ 50 mls/hr 03/27/18 13:15 Normal Saline - IV 03/28/18 13:16 ASDIR DANIEL Insulin Aspart 1 vial 03/23/18 22:00 03/27/18 12:10 Novolog Vial Sliding Scale - SQ 2 unit ACHS DANIEL Administration Protocol Lisinopril 10 mg 03/27/18 10:00 03/27/18 09:32 Prinivil PO 10 mg DAILY DANIEL Administration Meclizine HCl 25 mg 03/24/18 11:31 03/27/18 12:11 Antivert - PO 25 mg Q6H PRN Administration VERTIGO Mupirocin 1 applic 03/24/18 12:30 03/27/18 09:28 Bactroban 2% Ointment - TP 1 applic BID DANIEL Administration Nystatin 1 applic 03/23/18 22:29 03/27/18 09:32 Nystop Powder - TP 1 applic DAILY DANIEL Administration Microbiology 03/25/18 08:00 Urine - Urine Clean Catch Urine Culture - Preliminary Proteus Species Group D Strep Or Entero Coccus IMAGING chest xray: cardiomegly no infillirates xray of bilateral knees: no acute fracture no dislocation, moderate degenerative changes bilateral lower extremity doppler: no evidence of dvt echo LVH, trace MR chest xray 03/26: left hemidiaphragm, prominent central vascular markings ct of chest: left basilar athelactasis, trace right pleural effusion ASSESSMENT/PLAN: 1) cardiology new onset afib - rate controlled, continue coreg, continuous cardiac monitoring - continue eliquis hypertension - coreg and lisinopril, slightly above goal - close monitoring continue b/p monitoring q4h hyperlipidemia - lipid profile wnl systolic congestive heart failure - elevated bnp lasix 20mg iv x 2 (03/27) patient diuressed, 4k weight loss noted , will hold off on further diuresis secondary to rhabo - strict i/o daily weight 2) nephrology rhabdomylosis - ck trending upward, restart ivf ns @ 45ml/hr continue to trend - nephrology consulted and following 3) endo DM - fingersticks achs, regular insulin sliding scale 4) GI transanimitis -benign abdominal exam, ast/alt trending upward maybe secondary to rhabo, continue to trend . 5) uti - prelim urine culture + proteus and + enterococus, start rocephin until urine culture is finalized f/e/n -low sodium - replete electrolytes prn ppx -heparin sq - scd - pepcid dispo: pt requires in patient admission Visit type - Emergency Visit Emergency Visit: Yes ED Registration Date: 03/25/18 Care time: The patient presented to the Emergency Department on the above date and was hospitalized for further evaluation of their emergent condition. - New Patient This patient is new to me today: No - Critical Care Critical Care patient: No
[2018-03-27] MEDS: SODIUM CHLORIDE 1,000 ML IV SCH (13:52)
[2018-03-27] MEDS: CEFTRIAXONE 1 G/50 ML PREMIX 50 ML IVPB SCH (13:52)
[2018-03-27] MEDS ORDERED: TAMSULOSIN HCL 0.4 MG CAP.ER.24H (FP) PO ONE (14:41)
[2018-03-28] MEDS: ACETAMINOPHEN 325 MG TABLET (FP) PO SCH ×5 (00:14→23:08)
[2018-03-28] MEDS: INSULIN SLIDING SCALE (NOVOLOG) 1 VIAL SQ SCH ×4 (06:38→23:06)
--- NOTE | 2018-03-28 07:20 | PN ---
Progress Note (short form) - Note Progress Note: cc: elevated trop S: started on lisinpril today. s/p lasix yesterday. IVF restarted today. OSKAR wraps placed to LE yesterday. patient continues to feel better. LE pain/ edema significantly improved with oskar wraps, despite receiving ivf today. no cp , palps, sob, dizziness. Current Medications Acetaminophen (Tylenol -) 650 mg PO Q6HPO [facility] Last Admin: 03/27/18 12:10 Dose: 650 mg Apixaban (Eliquis -) 5 mg PO BID [facility] Last Admin: 03/27/18 09:32 Dose: 5 mg Carvedilol (Coreg -) 6.25 mg PO BID [facility] Last Admin: 03/27/18 09:32 Dose: 6.25 mg Insulin Aspart (Novolog Vial Sliding Scale -) 1 vial SQ ACHS [facility] PRN Reason: Protocol Last Admin: 03/27/18 12:10 Dose: 2 unit Lisinopril (Prinivil) 10 mg PO DAILY [facility] Last Admin: 03/27/18 09:32 Dose: 10 mg Meclizine HCl (Antivert -) 25 mg PO Q6H PRN PRN Reason: VERTIGO Last Admin: 03/27/18 12:11 Dose: 25 mg Mupirocin (Bactroban 2% Ointment -) 1 applic TP BID [facility] Last Admin: 03/27/18 09:28 Dose: 1 applic Nystatin (Nystop Powder -) 1 applic TP DAILY [facility] Last Admin: 03/27/18 09:32 Dose: 1 applic Vital Signs - 24 hr 03/27/18 03/27/18 03/27/18 08:35 09:33 14:03 Temperature 97.9 F Pulse Rate 63 Respiratory 18 18 19 Rate Blood Pressure 161/84 136/62 O2 Sat by Pulse 96 94 L Oximetry (%) 03/27/18 03/27/18 03/28/18 20:55 22:00 06:00 Temperature 98.7 F 97.7 F Pulse Rate 71 75 Respiratory 19 20 20 Rate Blood Pressure 171/69 191/63 O2 Sat by Pulse 94 L 95 Oximetry (%) 03/28/18 06:49 Temperature Pulse Rate Respiratory Rate Blood Pressure O2 Sat by Pulse 95 Oximetry (%) Intake & Output 03/25/18 03/26/18 03/27/18 07:59 07:59 07:59 Intake Total 2355 1600 1350 Output Total 668 321 6216 Balance 2155 1300 -1900 Weight 309 lb 0.2 oz 311 lb 0.6 oz 302 lb nad, calm jvd tds but does not appear elevated, neck supple bibasilar rales, nl effort rrr nl s1, s2. no mrg. ext now without edema, oskar wraps on. no c/c excoriations on knees from fall. + bs soft nt nd. +dp/pt aaox3 no jaundice, diaphoresis. Laboratory Tests 03/27/18 03/27/18 08:01 08:01 Hgb 13.4 Sodium 135 L Potassium 3.6 BUN 12 Creatinine 0.7 Magnesium 1.6 L Total Bilirubin 0.9 AST 498 H ALT 167 H Alkaline Phosphatase 54 Creatine Kinase 67391 H CK-MB (CK-2) 12.9 H Albumin 3.0 L ekg: nsr, early r wave progression. no acute ischemic changes. tele: sr/sb (50's) with frequent atrial runs. No recurrence of prolonged episode of afib/flutter. echo 03/2018: tds. bline conc lvh. nl lv fn. no rwma. impaired relaxation. nl rv size/fn. 1+ lae. mild-mod mac. chest ct: left basilar atelectasis. trace rt pleural effusion cxr 03/23/18: mild bilateral perihilar increased lung markings. minimal atelectasis at left lung base. No congestion or infiltrates. cxr 03/26/18: elevated left hemidiaphragm. prominent central vascular markings ( increased slightly) but no clear congestion, effusions or infiltrate. Incidental infrahilar calcifications. LE dopplers: no dvt bilaterally. + edema of subcut tissue. ASSESSMENT/PLAN 77 yo with PMH of diabetes (per report) non compliant with diabetes medication for 2 years p/w LE edema/weakness/fall and found to have rhabdo. Hospital course complicated by new diagnosis of htn, paroxysmal afib and abnormal troponin. abnormal troponin - Intermediate troponin elevation (up to 0.18 in the setting of CK > 20,000, overall flat trend (still trending up in setting of ongoing uptrend in ck to 29, 000). Likely troponin leak 2/2 rhabdo (+/- demand from psvt). ekg without ischemic changes. No concern for ACS at the time. - can consider need for outpatient ischemic evaluation once acute issues resolve. - echo with nl systolic function. sob, resolved. - S/P ivf rhabdo. stopped 03/25. No significant congestion on cxr, sats ok. chest ct without signs of congestion --> IVF resumed. con't close monitoring of volume status. daily weights, I/O's, bmp. - consider bipap at night for orthopnea which may be 2/2 petra and not pulmonary edema. - echo with diastolic dysfunction, mild mod mac. rhabdo - CK improving. ongoing mgm't per renal. - 03/26: IVF stopped yesterday. s/p lasix 20 mg IV today. On my exam, pt without signs of worsening right sided congestion. LE edema stable from admit and per patient at his baseline. LFT's plateaued today --> may be from stopping IVF, low suspicion for slight elevation from hepatic congestion. OK to resume IVF at discretion of renal consult. discussed with renal. Can use OSKAR wraps to manage LE edema. - 03/27: IVF resumed, no signs of right sided congestion --> con't with close monitoring. LE edema resolved with oskar wraps, con't. new diagnosis of paroxysmal aflutter/fib - 5-10 min stretches of aflutter/fib on admit. new diagnosis - currently rate controlled in SR without recurrence on coreg 6.25 mg bid, con' t. Intiated AC with eliquis here. - echo as above. - consider petra eval as outpatient. - lyter repletion prn. htn - not previously on anti-htn regimen. initiated coreg here (also for rate control). Patient with asx bradycardia at 12.5 bid dose, but suboptimal bp control on 6.25 bid dose. Patient diabetic, ACEI started 03/27. s/p mechanical fall/LE weakness - ongoing mgm't per pmd,
[2018-03-28 08:07] LABS: EOS % 0.6 % (0-4.5); HEMATOCRIT 38.5 % (35.4-49); HEMOGLOBIN 13.2 GM/dl (11.7-16.9); LYMPH % 16.8 % (8-40); MCHC 34.3 g/dl (32.0-35.9); MEAN CELL VOLUME 84.5 fl (80-96); MEAN PLT VOLUME 6.9 fl (7.5-11.1); MONO % 8.9 % (3.8-10.2); NEUT % 73.7 % (42.8-82.8); PLATELET COUNT 247 K/MM3 (134-434); RBC 4.55 M/mm3 (4.00-5.60); RDW 13.7 % (11.9-15.9); WHITE BLOOD COUNT 11.9 K/mm3 (4.0-10.8)
[2018-03-28 08:16] LABS: ALBUMIN 2.8 g/dl (3.5-5.0); ALK PHOS 52 U/L (32-92); ANION GAP 8 (8-16); BILIRUBIN,TOTAL 0.9 mg/dl (0.2-1.0); BLOOD UREA NITROGEN 10 mg/dl (7-18); CALCIUM 8.2 mg/dl (8.4-10.2); CHLORIDE 95 mmol/L (98-107); CO2 30 mmol/L (22-28); GLUCOSE,RANDOM 126 mg/dl (74-106); MAGNESIUM 1.6 mg/dL (1.8-2.4); PHOSPHOROUS 3.1 mg/dl (2.5-4.6); POTASSIUM 3.5 mmol/L (3.5-5.1); SGOT/AST 333 U/L (10-42); SGPT/ALT 145 U/L (10-40); SODIUM 133 mmol/L (136-145); TOT PROT 5.6 g/dl (6.4-8.3)
[2018-03-28 08:54] LABS: CREATININE < 0.8 mg/dl (0.6-1.3)
[2018-03-28] MEDS: APIXABAN 5 MG TABLET PO SCH ×2 (09:27→21:18)
[2018-03-28] MEDS: TAMSULOSIN HCL 0.4 MG CAP.ER.24H (FP) PO SCH (09:27)
[2018-03-28] MEDS: CARVEDILOL 6.25 MG TABLET (FP) PO SCH ×2 (09:28→21:18)
[2018-03-28] MEDS: LISINOPRIL 10 MG TABLET (FP) PO SCH (09:28)
[2018-03-28] MEDS: CEFTRIAXONE 1 G/50 ML PREMIX 50 ML IVPB SCH (09:29)
[2018-03-28] MEDS: MUPIROCIN 2% TOPICAL OINTMENT 22 GM TUBE TP SCH ×2 (09:29→21:18)
[2018-03-28] MEDS: NYSTATIN POWDER 100,000 UNITS/GM - 15 GM TOPICAL POWDER TP SCH (09:30)
[2018-03-28] MEDS: MECLIZINE HCL 25 MG TABLET (FP) PO PRN (09:36)
--- NOTE | 2018-03-28 10:08 | PN ---
Physical Exam: SUBJECTIVE: Patient seen and examined at bedside. OBJECTIVE: Vital Signs Period Temp Pulse Resp BP Sys/[place] Pulse Ox Last 24 Hr 97.7 F-98.7 F 63-75 19-20 136-191/62-69 94-95 GENERAL: The patient is awake, alert, and fully oriented, in no acute distress. LUNGS: Expiratory wheezing, bibasilar crackles HEART: Regular rate and rhythm, S1, S2 ABDOMEN: Soft, nontender, nondistended, normoactive bowel sounds LOWER EXTREMITIES: zina wraps on NEUROLOGICAL: Cranial nerves II through XII grossly intact. Normal speech, steady gait Laboratory Results - last 24 hr 03/27/18 03/27/18 03/27/18 08:01 08:01 12:07 WBC RBC Hgb Hct MCV MCH MCHC RDW Plt Count MPV Neutrophils % Lymphocytes % Monocytes % Eosinophils % Basophils % Sodium 135 L Potassium 3.6 Chloride 96 L Carbon Dioxide 31 H Anion Gap 8 BUN 12 Creatinine 0.7 Creat Clearance w eGFR > 60 POC Glucometer 159 Random Glucose 124 H Calcium 8.3 L Phosphorus 3.2 Magnesium 1.6 L Total Bilirubin 0.9 AST 498 H ALT 167 H Alkaline Phosphatase 54 Creatine Kinase 72510 H Cancelled Creatine Kinase Index 0.0 CK-MB (CK-2) 12.9 H Total Protein 5.7 L Albumin 3.0 L 03/27/18 03/27/18 03/28/18 16:52 20:43 06:22 WBC RBC Hgb Hct MCV MCH MCHC RDW Plt Count MPV Neutrophils % Lymphocytes % Monocytes % Eosinophils % Basophils % Sodium Potassium Chloride Carbon Dioxide Anion Gap BUN Creatinine Creat Clearance w eGFR POC Glucometer 107 155 124 Random Glucose Calcium Phosphorus Magnesium Total Bilirubin AST ALT Alkaline Phosphatase Creatine Kinase Creatine Kinase Index CK-MB (CK-2) Total Protein Albumin 03/28/18 03/28/18 03/28/18 07:15 07:15 07:15 WBC 11.9 H RBC 4.55 Hgb 13.2 Hct 38.5 MCV 84.5 MCH 29.0 MCHC 34.3 RDW 13.7 Plt Count 247 MPV 6.9 L Neutrophils % 73.7 Lymphocytes % 16.8 D Monocytes % 8.9 Eosinophils % 0.6 Basophils % 0.0 Sodium 133 L Potassium 3.5 Chloride 95 L Carbon Dioxide 30 H Anion Gap 8 BUN 10 Creatinine < 0.8 Creat Clearance w eGFR > 60 POC Glucometer Random Glucose 126 H Calcium 8.2 L Phosphorus 3.1 Magnesium 1.6 L Total Bilirubin 0.9 AST 333 H D ALT 145 H Alkaline Phosphatase 52 Creatine Kinase 6650 H Creatine Kinase Index CK-MB (CK-2) Total Protein 5.6 L Albumin 2.8 L 03/28/18 07:15 WBC RBC Hgb Hct MCV MCH MCHC RDW Plt Count MPV Neutrophils % Lymphocytes % Monocytes % Eosinophils % Basophils % Sodium Potassium Chloride Carbon Dioxide Anion Gap BUN Creatinine Creat Clearance w eGFR POC Glucometer Random Glucose Calcium Phosphorus Magnesium Total Bilirubin AST ALT Alkaline Phosphatase Creatine Kinase Creatine Kinase Index CK-MB (CK-2) 6.3 H Total Protein Albumin Active Medications Generic Name Dose Route Start Last Admin Trade Name Freq PRN Reason Stop Dose Admin Acetaminophen 650 mg 03/23/18 18:00 03/28/18 06:15 Tylenol - PO 650 mg Q6HPO DANIEL Administration Apixaban 5 mg 03/24/18 12:30 03/28/18 09:27 Eliquis - PO 5 mg BID DANIEL Administration Carvedilol 6.25 mg 03/25/18 22:00 03/28/18 09:28 Coreg - PO 6.25 mg BID DANIEL Administration Sodium Chloride 1,000 mls @ 50 mls/hr 03/27/18 13:15 03/27/18 13:52 Normal Saline - IV 03/28/18 13:16 50 mls/hr ASDIR DANIEL Administration Ceftriaxone Sodium 50 mls @ 100 mls/hr 03/27/18 13:30 03/28/18 09:29 Ceftriaxone 1 Gm-D5w Bag IVPB 100 mls/hr DAILY DANIEL Administration Protocol Insulin Aspart 1 vial 03/23/18 22:00 03/28/18 06:38 Novolog Vial Sliding Scale - SQ Not Given ACHS DANIEL Protocol Lisinopril 10 mg 03/27/18 10:00 03/28/18 09:28 Prinivil PO 10 mg DAILY DANIEL Administration Meclizine HCl 25 mg 03/24/18 11:31 03/28/18 09:36 Antivert - PO 25 mg Q6H PRN Administration VERTIGO Mupirocin 1 applic 03/24/18 12:30 03/28/18 09:29 Bactroban 2% Ointment - TP 1 applic BID DANIEL Administration Nystatin 1 applic 03/23/18 22:29 03/28/18 09:30 Nystop Powder - TP 1 applic DAILY DANIEL Administration Tamsulosin HCl 0.4 mg 03/28/18 08:30 03/28/18 09:27 Flomax - PO 0.4 mg DAILY@0830 DANIEL Administration ASSESSMENT/PLAN 77 year-old male with a PMH significant for diabetes, non-compliant, and recurrent falls. Presented to the ED s/p fall and on the floor ~20 hours. Admitted for rhabdomyolysis. Found to also be hypertensive, with newly diagnosed paroxysmal afib, and diastolic heart dysfunction. Rhabdomyolysis --CPK initially 18,800, trending down -->6,650 --continue NS @ 50mL/hr Hypertension --BP still elevated (191/63) on carvedilol 6.25mg BID and lisinopril 10mg; will increase lisinopril to 20mg Paroxysmal afib/aflutter --newly diagnosed this admission --rate well-controlled --continue carvedilol --on Eliquis Diastolic heart dysfunction --03/24 Echo: cLVH, impaired relaxation; RV normal; LAE; trace MR --last lasix given 03/26 --continue to hold diuretics due to rhabdo --elevate legs and pressure wrap to help with edema Hypomagnesemia --repleted Diabetes --glucose in 100s --Novolog sliding scale coverage FEN Fluids: NS @ 50mL/hr Electrolytes: replete as indicated Nutrition: low sodium, diabetic DVT prophylaxis: on Eliquis Physical therapy Dispo: continues to require inpatient care. Full code. Visit type - Emergency Visit Emergency Visit: Yes ED Registration Date: 03/25/18 Care time: The patient presented to the Emergency Department on the above date and was hospitalized for further evaluation of their emergent condition. - New Patient This patient is new to me today: Yes Date on this admission: 03/28/18 - Critical Care Critical Care patient: No
[2018-03-28] MEDS ORDERED: MAGNESIUM SULF 50% (8.12 MEQ/2 ML-1 GM VIAL) IVPB ONE (10:10)
[2018-03-28] MEDS ORDERED: LISINOPRIL 10 MG TABLET (FP) PO STA (10:13)
--- NOTE | 2018-03-28 11:18 | CONSULT ---
Consult - text type - Consultation Consultation Note: Patient is a diabetic. Patient seen for swollen feet and painful elongated thickened toe nails in shoe gear and ambulation. Patient seen in bed. vss Tmax +edema, +mycotic big toe nails, +b/l pitting edema, -cellulitis of toes, - drainage, +bandages from midfoot up, onychomycosis edema Debride nails x 10. Discussed diabetic foot care. Will follow till dc. Recommend vascular consult.
--- NOTE | 2018-03-28 12:12 | PN ---
Progress Note (short form) - Note Progress Note: cc: elevated trop S: no cp, palps, sob, dizziness. Current Medications Generic Name Dose Route Start Last Admin Trade Name Krystianq PRN Reason Stop Dose Admin Acetaminophen 650 mg 03/23/18 18:00 03/28/18 11:29 Tylenol - PO 650 mg Q6HPO DANIEL Administration Apixaban 5 mg 03/24/18 12:30 03/28/18 09:27 Eliquis - PO 5 mg BID DANIEL Administration Carvedilol 6.25 mg 03/25/18 22:00 03/28/18 09:28 Coreg - PO 6.25 mg BID DANIEL Administration Sodium Chloride 1,000 mls @ 50 mls/hr 03/27/18 13:15 03/27/18 13:52 Normal Saline - IV 03/28/18 13:16 50 mls/hr ASDIR DANIEL Administration Ceftriaxone Sodium 50 mls @ 100 mls/hr 03/27/18 13:30 03/28/18 09:29 Ceftriaxone 1 Gm-D5w Bag IVPB 100 mls/hr DAILY DANIEL Administration Protocol Insulin Aspart 1 vial 03/23/18 22:00 03/28/18 11:24 Novolog Vial Sliding Scale - SQ Not Given ACHS DANIEL Protocol Meclizine HCl 25 mg 03/24/18 11:31 03/28/18 09:36 Antivert - PO 25 mg Q6H PRN Administration VERTIGO Mupirocin 1 applic 03/24/18 12:30 03/28/18 09:29 Bactroban 2% Ointment - TP 1 applic BID DANIEL Administration Nystatin 1 applic 03/23/18 22:29 03/28/18 09:30 Nystop Powder - TP 1 applic DAILY DANIEL Administration Tamsulosin HCl 0.4 mg 03/28/18 08:30 03/28/18 09:27 Flomax - PO 0.4 mg DAILY@0830 DANIEL Administration Vital Signs Period Temp Pulse Resp BP Sys/[place] Pulse Ox Last 24 Hr 97.7 F-98.7 F 63-75 19-20 136-191/62-69 94-95 nad, calm jvd tds but does not appear elevated, neck supple bibasilar rales, nl effort rrr nl s1, s2. no mrg. ext now without edema, zina wraps on. no c/c + bs soft nt nd. aaox3 no jaundice, diaphoresis. Laboratory Last Values WBC 11.9 K/mm3 (4.0-10.8) H 03/28/18 07:15 RBC 4.55 M/mm3 (4.00-5.60) 03/28/18 07:15 Hgb 13.2 GM/dl (11.7-16.9) 03/28/18 07:15 Hct 38.5 % (35.4-49) 03/28/18 07:15 MCV 84.5 fl (80-96) 03/28/18 07:15 MCH 29.0 pg (25.7-33.7) 03/28/18 07:15 MCHC 34.3 g/dl (32.0-35.9) 03/28/18 07:15 RDW 13.7 % (11.9-15.9) 03/28/18 07:15 Plt Count 247 K/MM3 (134-434) 03/28/18 07:15 MPV 6.9 fl (7.5-11.1) L 03/28/18 07:15 Neutrophils % 73.7 % (42.8-82.8) 03/28/18 07:15 Lymphocytes % 16.8 % (8-40) D 03/28/18 07:15 Monocytes % 8.9 % (3.8-10.2) 03/28/18 07:15 Eosinophils % 0.6 % (0-4.5) 03/28/18 07:15 Basophils % 0.0 % (0-2.0) 03/28/18 07:15 Sodium 133 mmol/L (136-145) L 03/28/18 07:15 Potassium 3.5 mmol/L (3.5-5.1) 03/28/18 07:15 Chloride 95 mmol/L (98-107) L 03/28/18 07:15 Carbon Dioxide 30 mmol/L (22-28) H 03/28/18 07:15 Anion Gap 8 (8-16) 03/28/18 07:15 BUN 10 mg/dl (7-18) 03/28/18 07:15 Creatinine < 0.8 mg/dl (0.6-1.3) 03/28/18 07:15 Creat Clearance w eGFR > 60 (>60) 03/28/18 07:15 POC Glucometer 141 UNITS (80-120) 03/28/18 11:24 Random Glucose 126 mg/dl (74-106) H 03/28/18 07:15 Hemoglobin A1c % 7.5 % (4.8-6.0) H 03/23/18 22:00 Calcium 8.2 mg/dl (8.4-10.2) L 03/28/18 07:15 Phosphorus 3.1 mg/dl (2.5-4.6) 03/28/18 07:15 Magnesium 1.6 mg/dL (1.8-2.4) L 03/28/18 07:15 Total Bilirubin 0.9 mg/dl (0.2-1.0) 03/28/18 07:15 AST 333 U/L (10-42) H D 03/28/18 07:15 ALT 145 U/L (10-40) H 03/28/18 07:15 Alkaline Phosphatase 52 U/L (32-92) 03/28/18 07:15 Creatine Kinase 6650 IU/L (39-308) H 03/28/18 07:15 Creatine Kinase Index 0.0 % (0.0-5.0) 03/28/18 07:15 CK-MB (CK-2) 6.3 ng/mL (0.3-4.0) H 03/28/18 07:15 Troponin I 0.14 ng/ml (0.00-0.06) H D 03/24/18 07:40 B-Natriuretic Peptide 907.39 pg/ml (5-450) H 03/23/18 16:00 Total Protein 5.6 g/dl (6.4-8.3) L 03/28/18 07:15 Albumin 2.8 g/dl (3.5-5.0) L 03/28/18 07:15 Triglycerides 166 mg/dl (35-160) H 03/26/18 07:21 Cholesterol 154 mg/dl 03/26/18 07:21 Total LDL Cholesterol 97 mg/dl 03/26/18 07:21 HDL Cholesterol 24 mg/dl (29-89) L 03/26/18 07:21 TSH 2.37 uIU/ml (0.358-3.74) 03/25/18 Unknown Urine Color Yellow 03/26/18 16:00 Urine Appearance Clear 03/26/18 16:00 Urine pH 5.5 (4.5-8) 03/26/18 16:00 Ur Specific [place] 1.010 (1.005-1.025) 03/26/18 16:00 Urine Protein Negative (NEGATIVE) 03/26/18 16:00 Urine Glucose (UA) Negative (NEGATIVE) 03/26/18 16:00 Urine Ketones Negative (NEGATIVE) 03/26/18 16:00 Urine Blood 2+ (NEGATIVE) H 03/26/18 16:00 Urine Nitrite Negative (NEGATIVE) 03/26/18 16:00 Urine Bilirubin Negative (NEGATIVE) 03/26/18 16:00 Urine Urobilinogen 0.2 (0.2-1.0) 03/26/18 16:00 Ur Leukocyte Esterase Negative (NEGATIVE) 03/26/18 16:00 Urine RBC 2-5 /hpf (0-3) 03/26/18 16:00 Urine WBC 0-2 (0-2) 03/26/18 16:00 Urine Bacteria Few /hpf (NEGATIVE) 03/23/18 19:00 ekg: nsr, early r wave progression. no acute ischemic changes. echo 03/2018: tds. bline conc lvh. nl lv fn. no rwma. impaired relaxation. nl rv size/fn. 1+ lae. mild-mod mac. chest ct: left basilar atelectasis. trace rt pleural effusion cxr 03/23/18: mild bilateral perihilar increased lung markings. minimal atelectasis at left lung base. No congestion or infiltrates. cxr 03/26/18: elevated left hemidiaphragm. prominent central vascular markings ( increased slightly) but no clear congestion, effusions or infiltrate. Incidental infrahilar calcifications. LE dopplers: no dvt bilaterally. + edema of subcut tissue. ASSESSMENT/PLAN 77 yo with PMH of diabetes (per report) non compliant with diabetes medication for 2 years p/w LE edema/weakness/fall and found to have rhabdo. Hospital course complicated by new diagnosis of htn, paroxysmal afib and abnormal troponin. abnormal troponin - Intermediate troponin elevation (up to 0.18 in the setting of CK > 20,000, overall flat trend (still trending up in setting of ongoing uptrend in ck to 29, 000). Likely troponin leak 2/2 rhabdo (+/- demand from psvt). ekg without ischemic changes. No concern for ACS at the time. - can consider need for outpatient ischemic evaluation once acute issues resolve. - echo with nl systolic function. sob, resolved. - S/P ivf for rhabdo. seems to have some vol overload, only getting ivfs 50 cc/ hr so would dc now and monitor vol status - consider bipap at night for orthopnea which may be 2/2 petra and not pulmonary edema. - echo with diastolic dysfunction, mild mod mac. rhabdo - CK improving. new diagnosis of paroxysmal aflutter/fib - 5-10 min stretches of aflutter/fib on admit. new diagnosis - currently rate controlled in SR without recurrence on coreg 6.25 mg bid, con' t. Intiated AC with eliquis here. - echo as above. - consider petra eval as outpatient. htn - not previously on anti-htn regimen. initiated coreg here (also for rate control). Patient with asx bradycardia at 12.5 bid dose, but suboptimal bp control on 6.25 bid dose. Patient diabetic, ACEI started 03/27, increased 03/28, continue to monitor bp. s/p mechanical fall/LE weakness - ongoing mgm't per pmd,
[2018-03-28] MEDS: SODIUM CHLORIDE 1,000 ML IV SCH (13:37)
[2018-03-29] MEDS: INSULIN SLIDING SCALE (NOVOLOG) 1 VIAL SQ SCH ×4 (06:30→22:54)
[2018-03-29] MEDS: ACETAMINOPHEN 325 MG TABLET (FP) PO SCH ×3 (06:32→18:57)
[2018-03-29] MEDS: CEFTRIAXONE 1 G/50 ML PREMIX 50 ML IVPB SCH (09:24)
[2018-03-29] MEDS: APIXABAN 5 MG TABLET PO SCH ×2 (09:25→21:36)
[2018-03-29] MEDS: MECLIZINE HCL 25 MG TABLET (FP) PO PRN (09:25)
[2018-03-29] MEDS: TAMSULOSIN HCL 0.4 MG CAP.ER.24H (FP) PO SCH (09:25)
[2018-03-29] MEDS: MUPIROCIN 2% TOPICAL OINTMENT 22 GM TUBE TP SCH ×2 (09:25→21:36)
[2018-03-29] MEDS: CARVEDILOL 6.25 MG TABLET (FP) PO SCH ×2 (09:25→21:36)
[2018-03-29] MEDS: NYSTATIN POWDER 100,000 UNITS/GM - 15 GM TOPICAL POWDER TP SCH (09:25)
[2018-03-29 11:01] VITALS: BMI 40.8
--- NOTE | 2018-03-29 11:17 | PN ---
Physical Exam: SUBJECTIVE: Patient seen and examined Pt reports feeling better, denies cp, sob,palpitations, abdominal pain, N/V/D or urinary symptoms. OBJECTIVE: Vital Signs Period Temp Pulse Resp BP Sys/[place] Pulse Ox Last 24 Hr 97.8 F-98.3 F 69-75 18-20 132-178/56-87 92-96 GENERAL: The patient is awake, alert, and fully oriented, in no acute distress. HEAD: Normal with no signs of trauma. EYES: PERRL, extraocular movements intact, sclera anicteric, conjunctiva clear. No ptosis. ENT: Ears normal, nares patent, oropharynx clear without exudates, moist mucous membranes. NECK: Trachea midline, full range of motion, supple. LUNGS: Breath sounds equal, positive, ronchi/crackles, no accessory muscle use. HEART: Regular rate and rhythm, S1, S2 without murmur, rub or gallop. ABDOMEN: Soft, nontender, nondistended, normoactive bowel sounds, no guarding, no rebound, no hepatosplenomegaly, no masses. EXTREMITIES: 2+ pulses, warm, well-perfused, +edema. NEUROLOGICAL: Cranial nerves II through XII grossly intact. Normal speech, gait not observed. PSYCH: Normal mood, normal affect. SKIN: Warm, dry, normal turgor, abrasion Rt elbow no rashes noted Laboratory Results - last 24 hr 03/28/18 03/28/18 03/28/18 11:24 18:25 22:59 POC Glucometer 141 180 140 03/29/18 06:28 POC Glucometer 129 Active Medications Generic Name Dose Route Start Last Admin Trade Name Xuan PRN Reason Stop Dose Admin Acetaminophen 650 mg 03/23/18 18:00 03/29/18 06:32 Tylenol - PO Not Given Q6HPO DANIEL Apixaban 5 mg 03/24/18 12:30 03/29/18 09:25 Eliquis - PO 5 mg BID DANIEL Administration Carvedilol 6.25 mg 03/25/18 22:00 03/29/18 09:25 Coreg - PO 6.25 mg BID DANIEL Administration Ceftriaxone Sodium 50 mls @ 100 mls/hr 03/27/18 13:30 03/29/18 09:24 Ceftriaxone 1 Gm-D5w Bag IVPB 100 mls/hr DAILY DANIEL Administration Protocol Insulin Aspart 1 vial 03/23/18 22:00 03/29/18 06:30 Novolog Vial Sliding Scale - SQ Not Given ACHS DANIEL Protocol Meclizine HCl 25 mg 03/24/18 11:31 03/29/18 09:25 Antivert - PO 25 mg Q6H PRN Administration VERTIGO Mupirocin 1 applic 03/24/18 12:30 03/29/18 09:25 Bactroban 2% Ointment - TP 1 applic BID DANIEL Administration Nystatin 1 applic 03/23/18 22:29 03/29/18 09:25 Nystop Powder - TP 1 applic DAILY DANIEL Administration Tamsulosin HCl 0.4 mg 03/28/18 08:30 03/29/18 09:25 Flomax - PO 0.4 mg DAILY@0830 DANIEL Administration ASSESSMENT/PLAN: This is a 77 year-old male with a PMH significant for diabetes, non-compliant, and recurrent falls. Presented to the ED s/p fall and on the floor ~20 hours. Admitted for rhabdomyolysis. Found to also be hypertensive, with newly diagnosed paroxysmal afib, and diastolic heart dysfunction. *Rhabdomyolysis -CPK initially 18,800, trending down > 3225 -s/p IV hydration *Hypertension -BP - improving but still elevated 178/75 - will cont on carvedilol 6.25mg BID and lisinopril 20mg daily - will monitor BP closely *Paroxysmal afib/aflutter-newly diagnosed this admission -rate well-controlled, SR now - will continue carvedilol and Eliquis *Diastolic heart dysfunction -03/24 Echo: cLVH, impaired relaxation; RV normal; LAE; trace MR -last Lasix given 03/26 -continue to hold diuretics due to rhabdo -elevate legs and pressure wrap to help with edema - cardiology following *Hypomagnesemia - s/p replacement - repeat lab Mg level 2 *Diabetes -glucose in 100s - Hgb Alc 7.5 -Novolog sliding scale coverage - consistent carb diet * UTI - will cont on Abx - afebrile with mild leukocytosis *Onychomycosis -mycotic big toe nails -podiatry consult done, rec vascular consult ordered FEN Fluids: NS @ 50mL/hr Electrolytes: replete as indicated Nutrition: low sodium, diabetic DVT prophylaxis: on Eliquis Physical therapy Dispo: continues to require inpatient care. Full code. Visit type - Emergency Visit Emergency Visit: Yes ED Registration Date: 03/25/18 Care time: The patient presented to the Emergency Department on the above date and was hospitalized for further evaluation of their emergent condition. - New Patient This patient is new to me today: Yes Date on this admission: 03/29/18 - Critical Care Critical Care patient: No
[2018-03-29 11:25] LABS: HEMOGLOBIN 14.1 GM/dl (11.7-16.9); MCH 28.3 pg (25.7-33.7); MCHC 33.6 g/dl (32.0-35.9); MEAN CELL VOLUME 84.1 fl (80-96); MEAN PLT VOLUME 7.4 fl (7.5-11.1); PLATELET COUNT 377 K/MM3 (134-434); RBC 4.99 M/mm3 (4.00-5.60); RDW 13.9 % (11.9-15.9); WHITE BLOOD COUNT 13.2 K/mm3 (4.0-10.8)
[2018-03-29 11:45] LABS: ALBUMIN 3.3 g/dl (3.5-5.0); ALK PHOS 60 U/L (32-92); ANION GAP 11 (8-16); BILIRUBIN,TOTAL 0.8 mg/dl (0.2-1.0); BLOOD UREA NITROGEN 11 mg/dl (7-18); CALCIUM 8.9 mg/dl (8.4-10.2); CHLORIDE 95 mmol/L (98-107); CO2 27 mmol/L (22-28); CREATININE 0.9 mg/dl (0.6-1.3); GLUCOSE,RANDOM 143 mg/dl (74-106); POTASSIUM 3.7 mmol/L (3.5-5.1); SGOT/AST 234 U/L (10-42); SGPT/ALT 136 U/L (10-40); SODIUM 133 mmol/L (136-145); TOT PROT 6.5 g/dl (6.4-8.3)
[2018-03-29] MEDS: LISINOPRIL 20 MG TABLET (FP) PO SCH (12:12)
[2018-03-29 13:20] LABS: SMUDGE CELLS FEW
[2018-03-29 13:21] LABS: PLATELET ESTIMATE SIGNIFICANT INCREASE
--- NOTE | 2018-03-29 14:34 | PN ---
Progress Note (short form) - Note Progress Note: RENAL Pt is awake and alert comfortable making urine no problem urinating Last Vital Signs Temp Pulse Resp BP Pulse Ox 97.8 F 69 20 178/75 92 L 03/29/18 06:00 03/29/18 06:00 03/29/18 06:00 03/29/18 06:00 03/29/18 06:00 lungs crackles at bases cvs s1s2 rr abd soft ext no edema neuro a+ox3 Current Medications Generic Name Dose Route Start Last Admin Trade Name Freq PRN Reason Stop Dose Admin Acetaminophen 650 mg 03/23/18 18:00 03/29/18 12:11 Tylenol - PO 650 mg Q6HPO DANIEL Administration Apixaban 5 mg 03/24/18 12:30 03/29/18 09:25 Eliquis - PO 5 mg BID DANIEL Administration Carvedilol 6.25 mg 03/25/18 22:00 03/29/18 09:25 Coreg - PO 6.25 mg BID DANIEL Administration Ceftriaxone Sodium 50 mls @ 100 mls/hr 03/27/18 13:30 03/29/18 09:24 Ceftriaxone 1 Gm-D5w Bag IVPB 100 mls/hr DAILY DANIEL Administration Protocol Insulin Aspart 1 vial 03/23/18 22:00 03/29/18 12:11 Novolog Vial Sliding Scale - SQ Not Given ACHS DANIEL Protocol Lisinopril 20 mg 03/29/18 11:30 03/29/18 12:12 Prinivil PO 20 mg DAILY DANIEL Administration Meclizine HCl 25 mg 03/24/18 11:31 03/29/18 09:25 Antivert - PO 25 mg Q6H PRN Administration VERTIGO Mupirocin 1 applic 03/24/18 12:30 03/29/18 09:25 Bactroban 2% Ointment - TP 1 applic BID DANIEL Administration Nystatin 1 applic 03/23/18 22:29 03/29/18 09:25 Nystop Powder - TP 1 applic DAILY DANIEL Administration Tamsulosin HCl 0.4 mg 03/28/18 08:30 03/29/18 09:25 Flomax - PO 0.4 mg DAILY@0830 DANIEL Administration CBC, BMP 03/29/18 11:00 03/29/18 11:00 Impression 1. Rhabdo 2. transaminitis maybe from rhabdo 3. obesity 4. DM 5. vertigo 6. knee pain 7. back pain 8. s/p fall x 2 Plan Since renal function is stable and ck is dropping would make no changes If ck not dropping would restart fluids and add lasix as necessary MV
[2018-03-30] MEDS: ACETAMINOPHEN 325 MG TABLET (FP) PO SCH ×3 (05:54→12:00)
[2018-03-30] MEDS: CARVEDILOL 6.25 MG TABLET (FP) PO SCH ×3 (05:56→21:16)
[2018-03-30] MEDS: INSULIN SLIDING SCALE (NOVOLOG) 1 VIAL SQ SCH ×3 (06:41→22:42)
[2018-03-30] MEDS: TAMSULOSIN HCL 0.4 MG CAP.ER.24H (FP) PO SCH (08:30)
--- NOTE | 2018-03-30 08:51 | PN ---
Progress Note, Physician Chief Complaint: fall History of Present Illness: leg swelling reduced denies sob, orthopnea, cp, palpit - Current Medication List Current Medications: Active Medications Acetaminophen (Tylenol -) 650 mg PO Q6HPO [facility] Last Admin: 03/30/18 05:54 Dose: 650 mg Apixaban (Eliquis -) 5 mg PO BID [facility] Last Admin: 03/29/18 21:36 Dose: 5 mg Carvedilol (Coreg -) 6.25 mg PO BID [facility] Last Admin: 03/30/18 05:56 Dose: 6.25 mg Ceftriaxone Sodium (Ceftriaxone 1 Gm-D5w Bag) 50 mls @ 100 mls/hr IVPB DAILY [facility] PRN Reason: Protocol Last Admin: 03/29/18 09:24 Dose: 100 mls/hr Insulin Aspart (Novolog Vial Sliding Scale -) 1 vial SQ ACHS [facility] PRN Reason: Protocol Last Admin: 03/29/18 22:54 Dose: Not Given Lisinopril (Prinivil) 20 mg PO DAILY [facility] Last Admin: 03/29/18 12:12 Dose: 20 mg Meclizine HCl (Antivert -) 25 mg PO Q6H PRN PRN Reason: VERTIGO Last Admin: 03/29/18 09:25 Dose: 25 mg Mupirocin (Bactroban 2% Ointment -) 1 applic TP BID [facility] Last Admin: 03/29/18 21:36 Dose: 1 applic Nystatin (Nystop Powder -) 1 applic TP DAILY [facility] Last Admin: 03/29/18 09:25 Dose: 1 applic Tamsulosin HCl (Flomax -) 0.4 mg PO DAILY@0830 [facility] Last Admin: 03/29/18 09:25 Dose: 0.4 mg - Objective Vital Signs: Vital Signs Temperature 98.0 F 03/30/18 06:00 Pulse Rate 66 03/30/18 06:00 Respiratory Rate 20 03/30/18 06:00 Blood Pressure 150/80 03/30/18 06:00 O2 Sat by Pulse Oximetry (%) 93 L 03/30/18 06:00 Constitutional: Yes: No Distress, Calm, Obese Cardiovascular: Yes: Regular Rate and Rhythm, S1, S2. No: Gallop, Murmur Respiratory: Yes: Regular, CTA Bilaterally. No: Accessory Muscle Use, Rales, Wheezes Extremities: No: Cold Edema: No (SCDs bilaterally) Neurological: Yes: Alert, Oriented Psychiatric: No: Agitated Labs: CBC, BMP 03/29/18 11:00 03/29/18 11:00 Assessment/Plan ekg: nsr, early r wave progression. no acute ischemic changes. echo 03/2018: tds. bline conc lvh. nl lv fn. no rwma. impaired relaxation. nl rv size/fn. 1+ lae. mild-mod mac. chest ct: left basilar atelectasis. trace rt pleural effusion cxr 03/23/18: mild bilateral perihilar increased lung markings. minimal atelectasis at left lung base. No congestion or infiltrates. cxr 03/26/18: elevated left hemidiaphragm. prominent central vascular markings ( increased slightly) but no clear congestion, effusions or infiltrate. Incidental infrahilar calcifications. LE dopplers: no dvt bilaterally. + edema of subcut tissue. ASSESSMENT/PLAN 77 yo with PMH of diabetes (per report) non compliant with diabetes medication for 2 years p/w LE edema/weakness/fall and found to have rhabdo. Hospital course complicated by new diagnosis of htn, paroxysmal afib and abnormal troponin. abnormal troponin - Intermediate troponin elevation, flat trend (0.1 x4). Likely troponin leak 2/ 2 rhabdo (+/- demand from psvt). ekg without ischemic changes. N no cardiac ischemic sx's. No concern for ACS here. - echo with nl systolic function - rec outpt f/u for risk stratification and monitoring for CAD sx's rhabdo - CK trending down. new diagnosis of paroxysmal aflutter/fib - 5-10 min stretches of aflutter/fib on admit--new diagnosis - currently rate controlled in SR without recurrence on coreg 6.25 mg bid, con' t. Intiated AC with eliquis here. - echo as above. - consider petra eval as outpatient. htn - initiated coreg 6.25 here for HR control - lisinopril 20mg added, bp remains 140s-160s - observe bp trend, add amlodipine if remains suboptimal s/p mechanical fall/LE weakness - ongoing mgm't per pmd ok for discharge from [facility] should f/u with us in 4-6 wks re: BP and afib monitoring
[2018-03-30 09:35] LABS: BASO % 0.1 % (0-2.0); EOS % 1.9 % (0-4.5); HEMATOCRIT 38.8 % (35.4-49); HEMOGLOBIN 13.1 GM/dl (11.7-16.9); LYMPH % 18.8 % (8-40); MCH 28.2 pg (25.7-33.7); MCHC 33.6 g/dl (32.0-35.9); MEAN CELL VOLUME 83.8 fl (80-96); MONO % 8.2 % (3.8-10.2); PLATELET COUNT 338 K/MM3 (134-434); RBC 4.63 M/mm3 (4.00-5.60); WHITE BLOOD COUNT 12.3 K/mm3 (4.0-10.8)
[2018-03-30 10:01] LABS: ALBUMIN 2.9 g/dl (3.5-5.0); ANION GAP 8 (8-16); BLOOD UREA NITROGEN 11 mg/dl (7-18); CALCIUM 8.4 mg/dl (8.4-10.2); CHLORIDE 95 mmol/L (98-107); CO2 31 mmol/L (22-28); CREATININE 0.8 mg/dl (0.6-1.3); GLUCOSE,RANDOM 154 mg/dl (74-106); MAGNESIUM 1.7 mg/dL (1.8-2.4); PHOSPHOROUS 3.3 mg/dl (2.5-4.6); POTASSIUM 3.8 mmol/L (3.5-5.1); SODIUM 134 mmol/L (136-145); TOT PROT 5.7 g/dl (6.4-8.3)
[2018-03-30 10:02] LABS: ALK PHOS 50 U/L (32-92); BILIRUBIN,TOTAL 0.8 mg/dl (0.2-1.0); SGOT/AST 166 U/L (10-42); SGPT/ALT 121 U/L (10-40)
[2018-03-30] MEDS: APIXABAN 5 MG TABLET PO SCH ×2 (10:08→21:15)
[2018-03-30] MEDS: LISINOPRIL 20 MG TABLET (FP) PO SCH (10:09)
[2018-03-30] MEDS: NYSTATIN POWDER 100,000 UNITS/GM - 15 GM TOPICAL POWDER TP SCH (10:10)
[2018-03-30] MEDS: MUPIROCIN 2% TOPICAL OINTMENT 22 GM TUBE TP SCH ×2 (10:10→22:42)
[2018-03-30] MEDS: CEFTRIAXONE 1 G/50 ML PREMIX 50 ML IVPB SCH (10:10)
[2018-03-30] MEDS ORDERED: MAGNESIUM SULFATE 2 GM in SODIUM CHLORIDE 100 ML IVPB ONE (10:13)
[2018-03-30] MEDS ORDERED: MAGNESIUM SULFATE IN WATER 2 GM/50 ML IVPB IVPB ONE (10:45)
--- NOTE | 2018-03-30 12:27 | DS ---
Physical Exam: SUBJECTIVE: Patient seen and examined, reports feeling well, denies any chest pain or shortness of breath, ambulated with physical therapist at bedside, denies any dyspnea upon exertion. OBJECTIVE:77 y/o man PMH of DM. Who presents to the ED via ambulance from home with B/L knee pain, unable to ambulate. Patient reports his knees gave out on him 2 days ago. Patient reports increased LE edema, SOB increased when ambulating. Patient reports not taking his DM meds. patient reports an increase in weight secondary to poor eating habits. Patient denies fever, chills, cough, CP, palpitations, AP, N/V/D, constipation, dysuria. ER course was notable for: (1) [place] [address], CKMB 69.3, Trop < 0.11 (2) Glucose 209 Vital Signs Period Temp Pulse Resp BP Sys/[place] Pulse Ox Last 24 Hr 97.8 F-98.3 F 66-74 19-20 145-164/64-87 93-98 PHYSICAL EXAM GENERAL: The patient is awake, alert, and fully oriented, in no acute distress. HEAD: Normal with no signs of trauma. EYES: PERRL, extraocular movements intact, sclera anicteric, conjunctiva clear. No ptosis. ENT: Ears normal, nares patent, oropharynx clear without exudates, moist mucous membranes. NECK: Trachea midline, full range of motion, supple. LUNGS: Breath sounds equal, positive, crackles to bilateral bases, no accessory muscle use. HEART: Regular rate and rhythm, S1, S2 without murmur, rub or gallop. ABDOMEN: Soft, nontender, nondistended, normoactive bowel sounds, no guarding, no rebound, no hepatosplenomegaly, no masses. EXTREMITIES: 2+ pulses, warm, well-perfused, + 1 edema to bilateral lower extremities NEUROLOGICAL: Cranial nerves II through XII grossly intact. Normal speech, gait not observed. PSYCH: Normal mood, normal affect. SKIN: Warm, dry, normal turgor, abrasion Rt elbow no rashes noted LABS Laboratory Results - last 24 hr 03/29/18 03/29/18 03/29/18 11:00 11:00 12:09 WBC RBC Hgb Hct MCV MCH MCHC RDW Plt Count MPV Neutrophils % Neutrophils % (Manual) 66.0 Band Neutrophils % 4.0 Lymphocytes % Lymphocytes % (Manual) 10.0 Monocytes % Monocytes % (Manual) 5 Eosinophils % Eosinophils % (Manual) 2.0 Basophils % Nucleated RBC % 2 H Smudge Cells Few Platelet Estimate Significant increase Platelet Comment Giant platelets Sodium 133 L Potassium 3.7 Chloride 95 L Carbon Dioxide 27 Anion Gap 11 BUN 11 Creatinine 0.9 Creat Clearance w eGFR > 60 POC Glucometer 120 Random Glucose 143 H Calcium 8.9 Phosphorus Magnesium 2.0 D Total Bilirubin 0.8 AST 234 H D ALT 136 H Alkaline Phosphatase 60 Creatine Kinase 3235 H Creatine Kinase Index 0.1 CK-MB (CK-2) 3.9 Total Protein 6.5 Albumin 3.3 L 03/29/18 03/30/18 03/30/18 18:46 05:45 09:07 WBC RBC Hgb Hct MCV MCH MCHC RDW Plt Count MPV Neutrophils % Neutrophils % (Manual) Band Neutrophils % Lymphocytes % Lymphocytes % (Manual) Monocytes % Monocytes % (Manual) Eosinophils % Eosinophils % (Manual) Basophils % Nucleated RBC % Smudge Cells Platelet Estimate Platelet Comment Sodium 134 L Potassium 3.8 Chloride 95 L Carbon Dioxide 31 H Anion Gap 8 BUN 11 Creatinine 0.8 Creat Clearance w eGFR > 60 POC Glucometer 166 112 Random Glucose 154 H Calcium 8.4 Phosphorus 3.3 Magnesium 1.7 L Total Bilirubin 0.8 AST 166 H D ALT 121 H Alkaline Phosphatase 50 Creatine Kinase 1223 H Creatine Kinase Index 0.2 CK-MB (CK-2) 3.0 Total Protein 5.7 L Albumin 2.9 L 03/30/18 09:07 WBC 12.3 H RBC 4.63 Hgb 13.1 Hct 38.8 MCV 83.8 MCH 28.2 MCHC 33.6 RDW 14.0 Plt Count 338 MPV 7.0 L Neutrophils % 71.0 Neutrophils % (Manual) Band Neutrophils % Lymphocytes % 18.8 Lymphocytes % (Manual) Monocytes % 8.2 Monocytes % (Manual) Eosinophils % 1.9 D Eosinophils % (Manual) Basophils % 0.1 D Nucleated RBC % Smudge Cells Platelet Estimate Platelet Comment Sodium Potassium Chloride Carbon Dioxide Anion Gap BUN Creatinine Creat Clearance w eGFR POC Glucometer Random Glucose Calcium Phosphorus Magnesium Total Bilirubin AST ALT Alkaline Phosphatase Creatine Kinase Creatine Kinase Index CK-MB (CK-2) Total Protein Albumin Laboratory Tests 03/23/18 16:00 B-Natriuretic Peptide 907.39 H Microbiology 03/25/18 08:00 Urine - Urine Clean Catch Urine Culture - Final Proteus Mirabilis Enterococcus Faecalis IMAGING chest xray: cardiomegly no infillirates xray of bilateral knees: no acute fracture no dislocation, moderate degenerative changes bilateral lower extremity doppler: no evidence of dvt echo LVH, trace MR chest xray 03/26: left hemidiaphragm, prominent central vascular markings ct of chest: left basilar athelactasis, trace right pleural effusion ultrasound of kidney/pelvis/bladder: normal kidneys and urinary bladder with no evidence of hydronephrosis, moderate post void residual HOSPITAL COURSE: Patient was admitted from the emergency department to telemetry. Patient was noted to have Rhabdomyolysis, CPK initially 18,800, trending down > 3225 with IV hydration. Patient has a past medical history of hypertension, b/p moved with lisinopril. Patient was noted to be in Paroxysmal afib/aflutter-newly diagnosed this admission. Patient was noted to be controlled on telemetry and SR on cardiac monitoring. Eliquis was started on continued throughout admission. Patient was noted to have acute systolic congestive heart required one dose of IV lasix with good diuresis. 03/24 Echo: cLVH, impaired relaxation; RV normal; LAE; trace MR, Cardiology, Dr Jarrett/Amparo/Raven consulted and followed. patient has a history of DM, he reports not taking any medication. hgb a1c 7.5, patient was treated with fingersticks achs with regular sliding scale. He was noted to have an acute urinary tract infection, treated with rocephin and started on flomax after reviewing ultrasound of pelvis which resulted as moderate post void residual. Date of Admission:03/25/18 Date of Discharge: 03/30/18 Minutes to complete discharge: 45 Discharge Summary Reason For Visit: RHABOMYOLYSIS Current Active Problems DVT prophylaxis (Acute) Elevated troponin (Acute) Fungal infection of skin of abdomen (Acute) Inability to ambulate due to knee (Acute) Noncompliance with medication regimen (Acute) Obesity (Acute) Rhabdomyolysis (Acute) Severe obesity (BMI >= 40) (Acute) Condition: Improved - Instructions Diet, Activity, Other Instructions: you were admitted to the hospital for new onset afib and rhabdomyolsis resume low sodium diet continue to drink frequent amounts of fluids throughout the day please continue coreg and lisinopril daily as prescribed your blood pressure and heart rate your hemoglobin a1c was noted to be elevated, please continue glyburide as prescribed please follow up with your primary care physician within 1 week please follow up with the account manager trainee, Dr Christensen within 4 weeks if any new or persistent symptoms develop please return to the emergency department i Referrals: Joao Christensen MD [Staff Physician] - Disposition: VNS/HOME HEALTH CARE - Home Medications Comprehensive Discharge Medication List: Ambulatory Orders NK [No Known Home Medication] 03/23/18 This patient is new to me today: No Emergency Visit: Yes ED Registration Date: 03/25/18 Care time: The patient presented to the Emergency Department on the above date and was hospitalized for further evaluation of their emergent condition. Critical Care patient: No - Discharge Referral Referred to [facility] Med P.C.: No
[2018-03-30] MEDS: MAGNESIUM OXIDE 400 MG TABLET (FP) PO SCH ×2 (15:04→21:16)
--- NOTE | 2018-03-30 15:45 | PN ---
Progress Note, Physician History of Present Illness: Pt seen and examined at bedside. He feels better. He denies muscle pain. He denies shortness of breath. - Current Medication List Current Medications: Active Medications Acetaminophen (Tylenol -) 650 mg PO Q6HPO COUNT INCLUDES THE [facility] Last Admin: 03/30/18 12:00 Dose: 650 mg Apixaban (Eliquis -) 5 mg PO BID COUNT INCLUDES THE [facility] Last Admin: 03/30/18 10:08 Dose: 5 mg Carvedilol (Coreg -) 6.25 mg PO BID COUNT INCLUDES THE [facility] Last Admin: 03/30/18 10:08 Dose: 6.25 mg Ceftriaxone Sodium (Ceftriaxone 1 Gm-D5w Bag) 50 mls @ 100 mls/hr IVPB DAILY COUNT INCLUDES THE [facility] PRN Reason: Protocol Last Admin: 03/30/18 10:10 Dose: 100 mls/hr Insulin Aspart (Novolog Vial Sliding Scale -) 1 vial SQ ACHS COUNT INCLUDES THE [facility] PRN Reason: Protocol Last Admin: 03/30/18 11:00 Dose: Not Given Levofloxacin (Levaquin -) 750 mg PO DAILY@0600 COUNT INCLUDES THE [facility] Last Admin: 03/30/18 13:35 Dose: 750 mg Lisinopril (Prinivil) 20 mg PO DAILY COUNT INCLUDES THE [facility] Last Admin: 03/30/18 10:09 Dose: 20 mg Magnesium Oxide (Mag-Ox -) 400 mg PO BID COUNT INCLUDES THE [facility] Last Admin: 03/30/18 15:04 Dose: 400 mg Meclizine HCl (Antivert -) 25 mg PO Q6H PRN PRN Reason: VERTIGO Last Admin: 03/29/18 09:25 Dose: 25 mg Mupirocin (Bactroban 2% Ointment -) 1 applic TP BID COUNT INCLUDES THE [facility] Last Admin: 03/30/18 10:10 Dose: 1 applic Nystatin (Nystop Powder -) 1 applic TP DAILY COUNT INCLUDES THE [facility] Last Admin: 03/30/18 10:10 Dose: 1 applic Tamsulosin HCl (Flomax -) 0.4 mg PO DAILY@0830 COUNT INCLUDES THE [facility] Last Admin: 03/30/18 08:30 Dose: 0.4 mg - Objective Vital Signs: Vital Signs Temperature 97.9 F 03/30/18 14:35 Pulse Rate 86 03/30/18 14:35 Respiratory Rate 19 03/30/18 14:35 Blood Pressure 189/72 03/30/18 14:35 O2 Sat by Pulse Oximetry (%) 94 L 04/30/18 14:36 Constitutional: Yes: Anxious Eyes: Yes: Conjunctiva Clear HENT: Yes: Atraumatic Neck: Yes: Supple Cardiovascular: Yes: S1, S2 Respiratory: Yes: CTA Bilaterally Gastrointestinal: Yes: Soft, Abdomen, Obese Genitourinary: Yes: WNL Musculoskeletal: Yes: WNL Edema: Yes Edema: LLE: Trace, RLE: Trace Neurological: Yes: Oriented Psychiatric: Yes: Oriented Labs: CBC, BMP 03/30/18 09:07 03/30/18 09:07 Problem List - Problems (1) Obesity Code(s): E66.9 - OBESITY, UNSPECIFIED (2) Rhabdomyolysis Code(s): M62.82 - RHABDOMYOLYSIS (3) Severe obesity (BMI >= 40) Code(s): E66.01 - MORBID (SEVERE) OBESITY DUE TO EXCESS CALORIES Assessment/Plan Current Medications Generic Name Dose Route Start Last Admin Trade Name Freq PRN Reason Stop Dose Admin Acetaminophen 650 mg 03/23/18 18:00 03/30/18 12:00 Tylenol - PO 650 mg Q6HPO DANIEL Administration Apixaban 5 mg 03/24/18 12:30 03/30/18 10:08 Eliquis - PO 5 mg BID DANIEL Administration Carvedilol 6.25 mg 03/25/18 22:00 03/30/18 10:08 Coreg - PO 6.25 mg BID DANIEL Administration Ceftriaxone Sodium 50 mls @ 100 mls/hr 03/27/18 13:30 03/30/18 10:10 Ceftriaxone 1 Gm-D5w Bag IVPB 100 mls/hr DAILY DANIEL Administration Protocol Insulin Aspart 1 vial 03/23/18 22:00 03/30/18 11:00 Novolog Vial Sliding Scale - SQ Not Given ACHS DANIEL Protocol Levofloxacin 750 mg 03/30/18 13:30 03/30/18 13:35 Levaquin - PO 750 mg DAILY@0600 DANIEL Administration Lisinopril 20 mg 03/29/18 11:30 03/30/18 10:09 Prinivil PO 20 mg DAILY DANIEL Administration Magnesium Oxide 400 mg 03/30/18 15:00 03/30/18 15:04 Mag-Ox - PO 400 mg BID DANIEL Administration Meclizine HCl 25 mg 03/24/18 11:31 03/29/18 09:25 Antivert - PO 25 mg Q6H PRN Administration VERTIGO Mupirocin 1 applic 03/24/18 12:30 03/30/18 10:10 Bactroban 2% Ointment - TP 1 applic BID DANIEL Administration Nystatin 1 applic 03/23/18 22:29 03/30/18 10:10 Nystop Powder - TP 1 applic DAILY DANIEL Administration Tamsulosin HCl 0.4 mg 03/28/18 08:30 03/30/18 08:30 Flomax - PO 0.4 mg DAILY@0830 DANIEL Administration Laboratory Tests 03/30/18 09:07 Magnesium 1.7 L Creatine Kinase 1223 H Impression 1. Rhabdo 2. transaminitis 3. obesity 4. DM 5. vertigo 6. knee pain 7. back pain 8. s/p fall x 2 Plan - cpk is improving - replace mag - monitor bp and titrate coreg as needed - volume status is stable - elevate legs when sitting Dr Brower
[2018-03-31] MEDS: ACETAMINOPHEN 325 MG TABLET (FP) PO SCH ×5 (06:40→23:16)
[2018-03-31] MEDS: INSULIN SLIDING SCALE (NOVOLOG) 1 VIAL SQ SCH ×4 (06:41→21:53)
[2018-03-31] MEDS: TAMSULOSIN HCL 0.4 MG CAP.ER.24H (FP) PO SCH (08:58)
[2018-03-31] MEDS ORDERED: PT OWN MED DRAWER 7, Y5N ONE (09:07)
[2018-03-31] MEDS: MUPIROCIN 2% TOPICAL OINTMENT 22 GM TUBE TP SCH ×2 (09:11→21:53)
[2018-03-31] MEDS: LISINOPRIL 20 MG TABLET (FP) PO SCH (09:12)
[2018-03-31] MEDS: CEFTRIAXONE 1 G/50 ML PREMIX 50 ML IVPB SCH (09:12)
[2018-03-31] MEDS: CARVEDILOL 6.25 MG TABLET (FP) PO SCH ×2 (09:12→21:53)
[2018-03-31] MEDS: MAGNESIUM OXIDE 400 MG TABLET (FP) PO SCH ×2 (09:12→21:53)
[2018-03-31] MEDS: APIXABAN 5 MG TABLET PO SCH ×2 (09:12→21:53)
[2018-03-31] MEDS: NYSTATIN POWDER 100,000 UNITS/GM - 15 GM TOPICAL POWDER TP SCH (09:13)
[2018-03-31] MEDS: MECLIZINE HCL 25 MG TABLET (FP) PO PRN (09:16)
[2018-04-01] MEDS: ACETAMINOPHEN 325 MG TABLET (FP) PO SCH ×2 (06:07→13:52)
[2018-04-01] MEDS: INSULIN SLIDING SCALE (NOVOLOG) 1 VIAL SQ SCH ×2 (06:07→13:45)
[2018-04-01] MEDS: TAMSULOSIN HCL 0.4 MG CAP.ER.24H (FP) PO SCH (10:11)
[2018-04-01] MEDS: CARVEDILOL 6.25 MG TABLET (FP) PO SCH (10:12)
[2018-04-01] MEDS: LISINOPRIL 20 MG TABLET (FP) PO SCH (10:12)
[2018-04-01] MEDS: APIXABAN 5 MG TABLET PO SCH (10:12)
[2018-04-01] MEDS: MAGNESIUM OXIDE 400 MG TABLET (FP) PO SCH (10:12)
[2018-04-01] MEDS: MECLIZINE HCL 25 MG TABLET (FP) PO PRN (10:12)
[2018-04-01] MEDS: NYSTATIN POWDER 100,000 UNITS/GM - 15 GM TOPICAL POWDER TP SCH (10:13)
[2018-04-01] MEDS: MUPIROCIN 2% TOPICAL OINTMENT 22 GM TUBE TP SCH (10:13)
--- NOTE | 2018-04-01 11:29 | PN ---
Progress Note (short form) - Note Progress Note: cc: elevated trop S: no cp, palps, sob, dizziness. Current Medications Generic Name Dose Route Start Last Admin Trade Name Freq PRN Reason Stop Dose Admin Acetaminophen 650 mg 03/23/18 18:00 04/01/18 06:07 Tylenol - PO Not Given Q6HPO DANIEL Apixaban 5 mg 03/24/18 12:30 04/01/18 10:12 Eliquis - PO 5 mg BID DANIEL Administration Carvedilol 6.25 mg 03/25/18 22:00 04/01/18 10:12 Coreg - PO 6.25 mg BID DANIEL Administration Ceftriaxone Sodium 50 mls @ 100 mls/hr 03/27/18 13:30 03/31/18 09:12 Ceftriaxone 1 Gm-D5w Bag IVPB Not Given DAILY DANIEL Protocol Insulin Aspart 1 vial 03/23/18 22:00 04/01/18 06:07 Novolog Vial Sliding Scale - SQ Not Given ACHS DANIEL Protocol Levofloxacin 750 mg 03/30/18 13:30 04/01/18 06:08 Levaquin - PO 750 mg DAILY@0600 DANIEL Administration Lisinopril 20 mg 03/29/18 11:30 04/01/18 10:12 Prinivil PO 20 mg DAILY DANIEL Administration Magnesium Oxide 400 mg 03/30/18 15:00 04/01/18 10:12 Mag-Ox - PO 400 mg BID DANIEL Administration Meclizine HCl 25 mg 03/24/18 11:31 04/01/18 10:12 Antivert - PO 25 mg Q6H PRN Administration VERTIGO Mupirocin 1 applic 03/24/18 12:30 04/01/18 10:13 Bactroban 2% Ointment - TP 1 applic BID DANIEL Administration Nystatin 1 applic 03/23/18 22:29 04/01/18 10:13 Nystop Powder - TP 1 applic DAILY DANIEL Administration Tamsulosin HCl 0.4 mg 03/28/18 08:30 04/01/18 10:11 Flomax - PO 0.4 mg DAILY@0830 DANIEL Administration Vital Signs Period Temp Pulse Resp BP Sys/[place] Pulse Ox Last 24 Hr 97.7 F-97.8 F 63-68 18-20 144-164/74-78 93 nad, calm jvd tds but does not appear elevated, neck supple ctab, nl effort rrr nl s1, s2. no mrg. ext now without edema + bs soft nt nd. aaox3 no jaundice, diaphoresis. CBC, BMP 03/30/18 09:07 03/30/18 09:07 ekg: nsr, early r wave progression. no acute ischemic changes. echo 03/2018: tds. bline conc lvh. nl lv fn. no rwma. impaired relaxation. nl rv size/fn. 1+ lae. mild-mod mac. chest ct: left basilar atelectasis. trace rt pleural effusion cxr 03/23/18: mild bilateral perihilar increased lung markings. minimal atelectasis at left lung base. No congestion or infiltrates. cxr 03/26/18: elevated left hemidiaphragm. prominent central vascular markings ( increased slightly) but no clear congestion, effusions or infiltrate. Incidental infrahilar calcifications. LE dopplers: no dvt bilaterally. + edema of subcut tissue. ASSESSMENT/PLAN 77 yo with PMH of diabetes (per report) non compliant with diabetes medication for 2 years p/w LE edema/weakness/fall and found to have rhabdo. Hospital course complicated by new diagnosis of htn, paroxysmal afib and abnormal troponin. abnormal troponin - Intermediate troponin elevation, flat trend (0.1 x4). Likely troponin leak 2/ 2 rhabdo (+/- demand from psvt). ekg without ischemic changes. N no cardiac ischemic sx's. No concern for ACS here. - echo with nl systolic function - rec outpt f/u for risk stratification and monitoring for CAD sx's rhabdo - CK trending down. new diagnosis of paroxysmal aflutter/fib - 5-10 min stretches of aflutter/fib on admit--new diagnosis - currently rate controlled in SR without recurrence on coreg 6.25 mg bid, con' t. Intiated AC with eliquis here. - echo as above. - consider petra eval as outpatient. htn - initiated coreg 6.25 here for HR control - lisinopril 20mg added, bp remains 140s-160s - observe bp trend, add amlodipine if remains suboptimal s/p mechanical fall/LE weakness - ongoing mgm't per pmd ok for discharge from [facility] should f/u with us in 4-6 wks re: BP and afib monitoring
[2018-04-01] MEDS: CEFTRIAXONE 1 G/50 ML PREMIX 50 ML IVPB SCH (13:45)
--- NOTE | 2018-04-01 13:58 | PN ---
Physical Exam: SUBJECTIVE: Patient seen and examined, ambulatory throughout nursing station with a walker OBJECTIVE:Patient is 77 y/o male with a past medical history of hypertension and bph, patient self discontinued his mediations 2 years ago. patient was admitted from the emergency department for rhabdomyolosis, new onset afib. Vital Signs Period Temp Pulse Resp BP Sys/[place] Pulse Ox Last 24 Hr 97.7 F-97.8 F 63-68 18-20 144-164/74-78 93 GENERAL: The patient is awake, alert, and fully oriented, in no acute distress. HEAD: Normal with no signs of trauma. EYES: PERRL, extraocular movements intact, sclera anicteric, conjunctiva clear. No ptosis. ENT: Ears normal, nares patent, oropharynx clear without exudates, moist mucous membranes. NECK: Trachea midline, full range of motion, supple. LUNGS: Breath sounds equal, clear to auscultation bilaterally, no wheezes, no crackles, no accessory muscle use. HEART: Regular rate and rhythm, S1, S2 without murmur, rub or gallop. ABDOMEN: Soft, nontender, nondistended, normoactive bowel sounds, no guarding, no rebound, no hepatosplenomegaly, no masses. EXTREMITIES: 2+ pulses, warm, well-perfused, no edema. NEUROLOGICAL: Cranial nerves II through XII grossly intact. Normal speech, gait not observed. PSYCH: Normal mood, normal affect. SKIN: Warm, dry, normal turgor, no rashes or lesions noted Laboratory Results - last 24 hr 03/31/18 03/31/18 04/01/18 16:31 21:52 06:05 POC Glucometer 114 119 117 Active Medications Generic Name Dose Route Start Last Admin Trade Name Freq PRN Reason Stop Dose Admin Acetaminophen 650 mg 03/23/18 18:00 04/01/18 06:07 Tylenol - PO Not Given Q6HPO DANIEL Apixaban 5 mg 03/24/18 12:30 04/01/18 10:12 Eliquis - PO 5 mg BID DANIEL Administration Carvedilol 6.25 mg 03/25/18 22:00 04/01/18 10:12 Coreg - PO 6.25 mg BID DANIEL Administration Ceftriaxone Sodium 50 mls @ 100 mls/hr 03/27/18 13:30 03/31/18 09:12 Ceftriaxone 1 Gm-D5w Bag IVPB Not Given DAILY [facility] Protocol Insulin Aspart 1 vial 03/23/18 22:00 04/01/18 06:07 Novolog Vial Sliding Scale - SQ Not Given ACHS [facility] Protocol Levofloxacin 750 mg 03/30/18 13:30 04/01/18 06:08 Levaquin - PO 750 mg DAILY@0600 DANIEL Administration Lisinopril 20 mg 03/29/18 11:30 04/01/18 10:12 Prinivil PO 20 mg DAILY DANIEL Administration Magnesium Oxide 400 mg 03/30/18 15:00 04/01/18 10:12 Mag-Ox - PO 400 mg BID DANIEL Administration Meclizine HCl 25 mg 03/24/18 11:31 04/01/18 10:12 Antivert - PO 25 mg Q6H PRN Administration VERTIGO Mupirocin 1 applic 03/24/18 12:30 04/01/18 10:13 Bactroban 2% Ointment - TP 1 applic BID DANIEL Administration Nystatin 1 applic 03/23/18 22:29 04/01/18 10:13 Nystop Powder - TP 1 applic DAILY DANIEL Administration Tamsulosin HCl 0.4 mg 03/28/18 08:30 04/01/18 10:11 Flomax - PO 0.4 mg DAILY@0830 DANIEL Administration IMAGING chest xray: cardiomegly no infillirates xray of bilateral knees: no acute fracture no dislocation, moderate degenerative changes bilateral lower extremity doppler: no evidence of dvt echo LVH, trace MR chest xray 03/26: left hemidiaphragm, prominent central vascular markings ct of chest: left basilar athelactasis, trace right pleural effusion Microbiology 03/25/18 08:00 Urine - Urine Clean Catch Urine Culture - Final Proteus Mirabilis Enterococcus Faecalis ASSESSMENT/PLAN: *Rhabdomyolysis -CPK initially 18,800, trending down > 3225 -s/p IV hydration *Hypertension -BP - improving - will cont on carvedilol 6.25mg BID and lisinopril 20mg daily - will monitor BP closely *Paroxysmal afib/aflutter-newly diagnosed this admission -rate well-controlled, SR now - will continue carvedilol and Eliquis *Diastolic heart dysfunction -03/24 Echo: cLVH, impaired relaxation; RV normal; LAE; trace MR -last Lasix given 03/26 -continue to hold diuretics due to rhabdo -elevate legs and pressure wrap to help with edema - cardiology following *Hypomagnesemia - s/p replacement - repeat lab Mg level 2 *Diabetes -glucose in 100s - Hgb Alc 7.5 -Novolog sliding scale coverage - consistent carb diet * UTI - will cont on Abx - afebrile with mild leukocytosis *Onychomycosis -mycotic big toe nails -podiatry consult done, rec vascular consult ordered FEN Electrolytes: replete as indicated Nutrition: low sodium, diabetic DVT prophylaxis: on Eliquis Physical therapy Dispo: continues to require inpatient care. Full code. Visit type - Emergency Visit Emergency Visit: Yes ED Registration Date: 03/25/18 Care time: The patient presented to the Emergency Department on the above date and was hospitalized for further evaluation of their emergent condition. - New Patient This patient is new to me today: No - Critical Care Critical Care patient: No - Discharge Referral Referred to [facility] No
[2018-04-01 14:26] VITALS: BP 162/66; PULSE 79; TEMP 98.4
== END 2018-04-01 16:38 | disposition home or self-care (01) | DRG 557 ==
LOC: FER 14:40 → FM/S 19:57 → OBSVTOIN 03-25 13:01
PROVIDERS: ADMIT Internal Medicine; ATTEND Nurse Practitioner Family
DX: M62.82 Rhabdomyolysis (principal); I50.21 Acute systolic (congestive) heart failure; Z68.41 Body mass index [BMI] 40.0-44.9, adult; I48.92 Unspecified atrial flutter; J98.11 Atelectasis; N39.0 Urinary tract infection, site not specified; E11.9 Type 2 diabetes mellitus without complications; B36.9 Superficial mycosis, unspecified; I11.0 Hypertensive heart disease with heart failure; I48.91 Unspecified atrial fibrillation; E83.42 Hypomagnesemia; D72.829 Elevated white blood cell count, unspecified; E66.01 Morbid (severe) obesity due to excess calories; R74.0 Nonspecific elevation of levels of transaminase and lactic acid dehydrogenase [LDH]; R42 Dizziness and giddiness; B35.1 Tinea unguium
CPT/HCPCS: 36415; 71045-TC-FY; 71046-TC-FY; 71250-TC; 73562-TC-LT-FY; 73562-TC-RT-FY; 76775-TC; 76856-TC; 80053; 80061; 81003; 81015; 82550; 82553; 82962; 83036; 83735; 83880; 84100; 84443; 84484; 85025; 87086; 87186; 90715; 93005; 93010; 93306-TC; 93970-TC; 97116-GP; 97161-GP; 99284-25; G0378; J1644; J7030